=== PATIENT | male | born 1950 | race Hispanic/Latino ===

== ENCOUNTER 2021-01-23 03:10 | Emergency (ER) | payer OTHER, MEDICARE ==
[~2021-01-23] VITALS: Ht 152.4 cm; Wt 67.6 kg
[~2021-01-23 03:10] MED LIST: ALBU8.5H8 IH; ATOR20TA65 PO; CARV6.2579 PO; CICL6.6S19 TP; FURO40TA7 PO; INSU3INS3 SQ; LEVO25CA4 PO; VITAMIN D PO
[2021-01-23 04:08] VITALS: BP 99/71
[2021-01-23 04:53] LABS: ALBUMIN 3.3 g/dL (3.5-5.0); BILIRUBIN,TOTAL 2.9 mg/dL (0.2-1.0); CREATININE 1.8 mg/dL (0.5-1.5); POTASSIUM 5.2 mmol/L (3.5-5.1)
[2021-01-23 04:57] LABS: BASOPHILS % (AUTO) 0.4 % (0.0-5.0); EOSINOPHILS % (AUTO) 0.5 % (0.0-8.0); HEMATOCRIT 32.2 % (42-54); LYMPHOCYTES % (AUTO) 14.8 % (21.0-51.0); MEAN CORPUSCULAR HEMOGLOBIN 28.5 pg (27.0-33.0); MONOCYTES % (AUTO) 6.5 % (3.0-13.0); NEUTROPHILS % (AUTO) 77.4 % (40.0-77.0); PLATELET COUNT (AUTO) 208 K/uL (130-400); RED BLOOD CELL COUNT(AUTO) 3.62 MIL/uL (4.50-6.20); RED CELL DISTRIBUTION WIDTH 16.7 % (11.0-15.5); WHITE BLOOD COUNT (AUTO) 5.6 K/uL (4.8-10.8)
[2021-01-23] MEDS ORDERED: FUROSEMIDE 40MG VIAL IV ONE (05:00)
[2021-01-23 05:41] LABS: B-TYPE NATRIURETIC PEPTIDE 2130 pg/mL (0-100)
[2021-01-23 06:21] VITALS: BP 104/74
[2021-01-23 08:05] VITALS: BP 100/72
== END 2021-01-23 08:42 | disposition home or self-care (01) ==
LOC: EDH 03:10
DX: R60.0 Localized edema (principal); I11.0 Hypertensive heart disease with heart failure; I50.9 Heart failure, unspecified; I25.10 Atherosclerotic heart disease of native coronary artery without angina pectoris; E10.9 Type 1 diabetes mellitus without complications; E78.5 Hyperlipidemia, unspecified; Z79.4 Long term (current) use of insulin; Z79.899 Other long term (current) drug therapy; Z95.0 Presence of cardiac pacemaker
CPT/HCPCS: 36415; 80053; 83880; 84484; 85025; 96374; 99283; J1940

== ENCOUNTER 2021-01-23 17:42 | Emergency (ER) | payer OTHER, MEDICARE ==
[~2021-01-23] VITALS: Ht 152.4 cm; Wt 65.8 kg
[2021-01-23 18:14] LABS: BASOPHILS % (AUTO) 0.3 % (0.0-5.0); EOSINOPHILS % (AUTO) 0.6 % (0.0-8.0); HEMATOCRIT 33.1 % (42-54); LYMPHOCYTES % (AUTO) 11.7 % (21.0-51.0); MEAN CORPUSCULAR HEMOGLOBIN 28.9 pg (27.0-33.0); MEAN CORPUSCULAR VOLUME 90.2 fL (79-99); MONOCYTES % (AUTO) 7.6 % (3.0-13.0); PLATELET COUNT (AUTO) 219 K/uL (130-400); RED BLOOD CELL COUNT(AUTO) 3.67 MIL/uL (4.50-6.20); RED CELL DISTRIBUTION WIDTH 17.2 % (11.0-15.5); WHITE BLOOD COUNT (AUTO) 6.2 K/uL (4.8-10.8)
[2021-01-23 18:25] LABS: CARBON DIOXIDE 24 mmol/L (21-32); CHLORIDE 101 mmol/L (101-111); CREATININE 2.1 mg/dL (0.5-1.5); GLOMERULAR FILTR. RATE CALC 33 mL/min (>60); GLUCOSE,RANDOM 278 mg/dL (70-105); SODIUM SERUM 138 mmol/L (136-145); UREA NITROGEN, BLOOD 53 mg/dL (7-18)
[2021-01-23 18:33] VITALS: BP 106/78
[2021-01-23 18:33] LABS: B-TYPE NATRIURETIC PEPTIDE 2180 pg/mL (0-100)
[2021-01-23 18:44] LABS: ALANINE AMINOTRANSFERASE 172 U/L (12-78); ALBUMIN 3.5 g/dL (3.5-5.0); ASPARTATE AMINOTRANSFERASE 139 U/L (10-37); BILIRUBIN,TOTAL 3.3 mg/dL (0.2-1.0); CREATINE KINASE, TOTAL 117 U/L (21-232); MYOGLOBIN 155 ng/mL (10-92); TOTAL PROTEIN, SERUM 7.3 g/dL (6.0-8.3); TROPONIN I < 0.04 ng/mL (0.00-0.06)
[2021-01-23 19:54] VITALS: BP 102/71
[2021-01-23 22:48] VITALS: BP 105/80
[2021-01-23 23:34] VITALS: BP 108/81
[2021-01-24 00:05] VITALS: BP 105/70
[2021-01-24 00:31] LABS: APPEARANCE,URINE Clear (CLEAR); BILIRUBIN,URINE Negative (NEGATIVE); COLOR,URINE Dark Yellow (YELLOW); GLUCOSE, URINE (UA) Negative (NEGATIVE); KETONES,URINE Negative (NEGATIVE); LEUKOCYTE ESTERASE ,URINE Negative (NEGATIVE); NITRATE,URINE Negative (NEGATIVE); OCCULT BLOOD,URINE Negative (NEGATIVE); PROTEIN,URINE Negative (NEGATIVE)
== END 2021-01-24 00:49 | disposition home or self-care (01) ==
LOC: EDH 17:42
DX: R60.0 Localized edema (principal); I11.0 Hypertensive heart disease with heart failure; I50.9 Heart failure, unspecified; R91.8 Other nonspecific abnormal finding of lung field; E11.9 Type 2 diabetes mellitus without complications; Z79.899 Other long term (current) drug therapy
CPT/HCPCS: 36415; 71045; 71250; 80053; 81003; 82550; 83874; 83880; 84484; 85025; 93005; 93970

== ENCOUNTER 2021-01-26 12:28 | Inpatient (IN) | payer OTHER, MEDICARE ==
[2021-01-26] VITALS (13 sets, daily range): BP systolic 93–136; BP diastolic 51–88
[~2021-01-26] VITALS: Ht 160 cm; Wt 83.5 kg
[2021-01-26] MEDS: CEFEPIME HCL 1 GM VIAL IVP SCH (02:00)
[2021-01-26] MEDS: 0.9%NACL 1000ML 1,000 ML IV SCH (08:00)
[2021-01-26] MEDS ORDERED: DEXTROSE 50%-WATER 50 ML DISP.SYRIN IV ONE ×4 (12:37→16:58)
[2021-01-26] MEDS ORDERED: LEVETIRACETAM 500 MG/5 ML SD VIAL IV ONE (12:41)
[2021-01-26] MEDS ORDERED: 0.9%NACL 100ML 100 ML ONE (12:41)
[2021-01-26] MEDS ORDERED: LORAZEPAM 2 MG/ML 1 ML VIAL ONE (12:43)
[2021-01-26] MEDS ORDERED: DEXTROSE 10%-WATER 1,000 ML IV ONE (12:59)
[2021-01-26] MEDS ORDERED: PROPOFOL 1000 MG/100 ML 100 ML IV ONE (13:19)
[2021-01-26] MEDS: LEVETIRACETAM 1,000 MG in 0.9%NACL 100ML 100 ML IV SCH ×2 (13:37→22:00)
[2021-01-26 13:49] LABS: BASOPHILS % (AUTO) 0.1 % (0.0-5.0); EOSINOPHILS % (AUTO) 0.1 % (0.0-8.0); LYMPHOCYTES % (AUTO) 8.7 % (21.0-51.0); MEAN CORPUSCULAR HEMOGLOBIN 29.1 pg (27.0-33.0); MEAN CORPUSCULAR HGB CONC 31.4 g/dL (32.0-36.0); MEAN CORPUSCULAR VOLUME 92.7 fL (79-99); MONOCYTES % (AUTO) 7.3 % (3.0-13.0); NEUTROPHILS % (AUTO) 82.8 % (40.0-77.0); PLATELET COUNT (AUTO) 223 K/uL (130-400); RED BLOOD CELL COUNT(AUTO) 3.99 MIL/uL (4.50-6.20); RED CELL DISTRIBUTION WIDTH 17.8 % (11.0-15.5); WHITE BLOOD COUNT (AUTO) 8.7 K/uL (4.8-10.8)
[2021-01-26] MEDS ORDERED: LEVETIRACETAM 1,500 MG in 0.9%NACL 100ML 100 ML IV SCH (14:00)
[2021-01-26 14:05] LABS: ALBUMIN 3.1 g/dL (3.5-5.0); BILIRUBIN,TOTAL 2.6 mg/dL (0.2-1.0); CREATININE 1.4 mg/dL (0.5-1.5)
[2021-01-26 14:11] LABS: B-TYPE NATRIURETIC PEPTIDE 2310 pg/mL (0-100)
[2021-01-26 14:24] LABS: INR 1.37 (0.85-1.15); PROTHROMBIN TIME 14.5 SEC (9.6-11.6)
[2021-01-26 14:26] LABS: PARTIAL THROMBOPLASTIN TIME 27.2 SEC (26.3-35.5)
[2021-01-26 14:58] LABS: ABG BASE EXCESS -5.9 mmol/L (-2.0-3.0); ABG HCO3 21.1 mmol/L (21.0-28.0); ABG OXYGEN SATURATION 97.3 % (95.0-99.0); ABG PCO2 47 mmHg (35-48)
[2021-01-26] MEDS ORDERED: ETOMIDATE 20MG VIAL IVP ONE (15:28)
[2021-01-26] MEDS ORDERED: SUCCINYLCHOLINE CHLORIDE 20 MG/ML 10 ML VIAL IVP ONE (15:28)
[2021-01-26] MEDS ORDERED: ROCURONIUM BROMIDE 10MG/1ML 5ML VL IV ONE (15:28)
[2021-01-26] MEDS ORDERED: SOLU-MEDROL 125MG VIAL IVP ONE (15:30)
[2021-01-26] MEDS ORDERED: FOSPHENYTOIN SODIUM IJ ONE ×2 (16:00→16:30)
[2021-01-26] MEDS ORDERED: NACL 0.9% IJ ONE (16:00)
[2021-01-26] MEDS ORDERED: [UNRECOGNIZED DRUG - OTHER] IJ ONE (16:30)
[2021-01-26] MEDS ORDERED: SOLU-MEDROL 125MG VIAL ONE (16:59)
[2021-01-26] MEDS ORDERED: ONDANSETRON 4MG INJ IVP PRN (17:00)
[2021-01-26] MEDS ORDERED: SOLU-MEDROL 125MG VIAL IVP SCH (17:00)
[2021-01-26] MEDS ORDERED: ACETAMINOPHEN 650 MG SUPPOSITORY RC PRN (17:00)
[2021-01-26] MEDS ORDERED: GLUCAGON 1MG KIT 1 MG ML IM PRN (17:00)
[2021-01-26] MEDS ORDERED: ACETAMINOPHEN 325 MG TAB PO PRN (17:00)
[2021-01-26] MEDS ORDERED: DEXTROSE 50%-WATER 50 ML DISP.SYRIN IV PRN (17:00)
[2021-01-26] MEDS: VALPROIC ACID (AS SODIUM SALT) 250 MG in 0.9%NACL 100ML 100 ML IV SCH (18:00)
[2021-01-26] MEDS: NOREPINEPHRINE 4MG/NS 250ML 250 ML IV PRN (18:07)
[2021-01-26 19:22] LABS: CREATINE KINASE, TOTAL 74 U/L (21-232); MYOGLOBIN 138 ng/mL (10-92); TROPONIN I < 0.04 ng/mL (0.00-0.06)
[2021-01-26] MEDS ORDERED: LACTULOSE 20 GM/30 ML UDCUP PO PRN (22:00)
[2021-01-26] MEDS: METRONIDAZOLE 500MG/100ML BAG 100 ML IVPB SCH (22:00)
[2021-01-26 23:34] LABS: CREATINE KINASE, TOTAL 59 U/L (21-232); MYOGLOBIN 83 ng/mL (10-92); TROPONIN I < 0.04 ng/mL (0.00-0.06)
[2021-01-27] VITALS (28 sets, daily range): BP systolic 102–127; BP diastolic 42–73
[2021-01-27] MEDS ORDERED: DEXTROSE 10%-WATER 1,000 ML IV ONE (00:02)
[2021-01-27] MEDS: VALPROIC ACID (AS SODIUM SALT) 250 MG in 0.9%NACL 100ML 100 ML IV SCH ×3 (00:56→17:35)
[2021-01-27] MEDS: CEFEPIME HCL 1 GM VIAL IVP SCH ×3 (01:01→20:41)
[2021-01-27] MEDS: FOSPHENYTOIN SODIUM 100 MG/2 ML VIAL IV SCH ×3 (02:50→21:06)
[2021-01-27] MEDS: METRONIDAZOLE 500MG/100ML BAG 100 ML IVPB SCH ×3 (04:57→21:14)
[2021-01-27] MEDS: LEVETIRACETAM 1,000 MG in 0.9%NACL 100ML 100 ML IV SCH ×3 (04:57→20:39)
[2021-01-27] MEDS: 0.9%NACL 1000ML 1,000 ML IV SCH ×3 (07:00→23:00)
[2021-01-27 07:39] LABS: BASOPHILS % (AUTO) 0.2 % (0.0-5.0); EOSINOPHILS % (AUTO) 0.2 % (0.0-8.0); HEMATOCRIT 35.7 % (42-54); LYMPHOCYTES % (AUTO) 5.3 % (21.0-51.0); MEAN CORPUSCULAR HGB CONC 32.2 g/dL (32.0-36.0); MEAN CORPUSCULAR VOLUME 90.2 fL (79-99); MONOCYTES % (AUTO) 3.6 % (3.0-13.0); NEUTROPHILS % (AUTO) 89.8 % (40.0-77.0); PLATELET COUNT (AUTO) 258 K/uL (130-400); RED BLOOD CELL COUNT(AUTO) 3.96 MIL/uL (4.50-6.20); RED CELL DISTRIBUTION WIDTH 18.1 % (11.0-15.5); WHITE BLOOD COUNT (AUTO) 14.8 K/uL (4.8-10.8)
[2021-01-27] MEDS ORDERED: PROPOFOL 1000 MG/100 ML 100 ML IV ONE ×4 (07:51→21:33)
[2021-01-27 08:01] LABS: ALBUMIN 2.7 g/dL (3.5-5.0); BILIRUBIN,TOTAL 2.8 mg/dL (0.2-1.0); CREATININE 1.3 mg/dL (0.5-1.5); MAGNESIUM 2.3 mg/dL (1.80-2.40); PHOSPHORUS 4.3 mg/dL (2.5-4.9); POTASSIUM 4.3 mmol/L (3.5-5.1); THYROID STIMULATING HORMONE 1.14 uIU/mL (0.36-3.74)
[2021-01-27 08:06] LABS: INR 1.32 (0.85-1.15)
[2021-01-27] MEDS: PANTOPRAZOLE 40 MG/VIAL IVP SCH (08:07)
[2021-01-27] MEDS: ENOXAPARIN SODIUM 40 MG/0.4 ML SYRINGE SQ SCH (08:08)
[2021-01-27 08:11] LABS: HEMOGLOBIN A1C 10.3 % (4.0-6.0)
[2021-01-27 08:15] LABS: B-TYPE NATRIURETIC PEPTIDE 1600 pg/mL (0-100)
[2021-01-27 08:37] LABS: ABG BASE EXCESS -0.9 mmol/L (-2.0-3.0); ABG HCO3 22.7 mmol/L (21.0-28.0); ABG OXYGEN SATURATION 99.2 % (95.0-99.0); ABG PCO2 35 mmHg (35-48)
[2021-01-27] MEDS ORDERED: IOHEXOL-350 75 ML VIAL IV ONE (10:42)
[2021-01-27] MEDS: MILRINONE-D5W 20 MG/100 ML 100 ML IV SCH (20:39)
[2021-01-27] MEDS: CEFTRIAXONE 2GM VIAL IVP SCH (21:57)
[2021-01-27] MEDS: INSULIN HUMULIN R 100 UNIT/ML 3ML SQ SCH (21:59)
[2021-01-27] MEDS: NOREPINEPHRINE 4MG/NS 250ML 250 ML IV PRN (23:15)
[2021-01-28] VITALS (25 sets, daily range): BP systolic 94–160; BP diastolic 49–104
[2021-01-28] MEDS: VALPROIC ACID (AS SODIUM SALT) 250 MG in 0.9%NACL 100ML 100 ML IV SCH ×2 (01:15→08:32)
[2021-01-28] MEDS: PROPOFOL 1000 MG/100 ML IV PRN ×3 (01:16→18:33)
[2021-01-28] MEDS: FOSPHENYTOIN SODIUM 100 MG/2 ML VIAL IV SCH ×4 (02:05→23:21)
[2021-01-28] MEDS: NOREPINEPHRINE 4MG/NS 250ML 250 ML IV PRN ×3 (03:20→23:39)
[2021-01-28] MEDS: 0.9%NACL 1000ML 1,000 ML IV SCH ×2 (03:41→19:55)
[2021-01-28] MEDS: LEVETIRACETAM 1,000 MG in 0.9%NACL 100ML 100 ML IV SCH ×3 (05:10→21:14)
[2021-01-28] MEDS: METRONIDAZOLE 500MG/100ML BAG 100 ML IVPB SCH ×3 (05:39→21:14)
[2021-01-28 06:15] LABS: HEMATOCRIT 36.3 % (42-54); MEAN CORPUSCULAR HEMOGLOBIN 28.6 pg (27.0-33.0); MEAN CORPUSCULAR HGB CONC 30.9 g/dL (32.0-36.0); MEAN CORPUSCULAR VOLUME 92.6 fL (79-99); RED BLOOD CELL COUNT(AUTO) 3.92 MIL/uL (4.50-6.20); RED CELL DISTRIBUTION WIDTH 18.7 % (11.0-15.5); WHITE BLOOD COUNT (AUTO) 11.8 K/uL (4.8-10.8)
[2021-01-28] MEDS: INSULIN HUMULIN R 100 UNIT/ML 3ML SQ SCH ×6 (06:21→21:00)
[2021-01-28] MEDS: MILRINONE-D5W 20 MG/100 ML 100 ML IV SCH ×2 (06:26→18:30)
[2021-01-28 06:33] LABS: CREATININE 1.5 mg/dL (0.5-1.5); MAGNESIUM 2.4 mg/dL (1.80-2.40); PHENYTOIN (DILANTIN) 4.4 mcg/mL (10.0-20.0); PHOSPHORUS 3.3 mg/dL (2.5-4.9); POTASSIUM 4.4 mmol/L (3.5-5.1)
[2021-01-28] MEDS ORDERED: FOSPHENYTOIN SODIUM 100 MG/2 ML VIAL IV SCH (08:30)
[2021-01-28] MEDS ORDERED: VALPROATE SOD 250 MG/5 ML (PO) PO SCH (08:30)
[2021-01-28] MEDS: PANTOPRAZOLE 40 MG/VIAL IVP SCH (08:33)
[2021-01-28] MEDS: ENOXAPARIN SODIUM 40 MG/0.4 ML SYRINGE SQ SCH (08:41)
[2021-01-28] MEDS ORDERED: FOSPHENYTOIN SODIUM IV SCH (09:00)
[2021-01-28] MEDS ORDERED: [UNRECOGNIZED DRUG - OTHER] IV SCH (09:00)
[2021-01-28] MEDS ORDERED: LACTULOSE 20 GM/30 ML UDCUP PO PRN (10:00)
[2021-01-28] MEDS ORDERED: PHARMACY COMMUNICATION MISC SCH ×3 (10:30→14:30)
[2021-01-28] MEDS ORDERED: [UNRECOGNIZED DRUG - REMARK] MISC STA (14:28)
[2021-01-28] MEDS: VALPROIC ACID IV SCH ×2 (18:15→23:21)
[2021-01-28] MEDS: [UNRECOGNIZED DRUG - OTHER] IV SCH ×2 (18:15→23:21)
[2021-01-28] MEDS: NACL 0.9% IV SCH (18:31)
[2021-01-28] MEDS: ACYCLOVIR IV SCH (18:31)
[2021-01-28 18:49] LABS: APPEARANCE,URINE Clear (CLEAR); BILIRUBIN,URINE Negative (NEGATIVE); COLOR,URINE Yellow (YELLOW); GLUCOSE, URINE (UA) Negative (NEGATIVE); KETONES,URINE Negative (NEGATIVE); LEUKOCYTE ESTERASE ,URINE Small (NEGATIVE); NITRATE,URINE Negative (NEGATIVE); OCCULT BLOOD,URINE Large (NEGATIVE); PH,URINE 5.5 (5.0-8.0); PROTEIN,URINE Negative (NEGATIVE); UROBILINOGEN,URINE 0.2 mg/dL (0.2-1.0)
[2021-01-28 19:02] LABS: RBC,URINE 26-50 /HPF (0-1)
[2021-01-28 19:03] LABS: BACTERIA,URINE Few /HPF (None Seen); MUCUS,URINE Few LPF (None Seen); SQUAMOUS EPITHELIAL CELL,UR Few /HPF (0-2)
[2021-01-28] MEDS: CEFTRIAXONE 2GM VIAL IVP SCH (19:55)
[2021-01-28 22:11] LABS: AMPHET/METH SCREEN,URINE NEGATIVE (NEGATIVE); BARBITURATE SCREEN, URINE NEGATIVE (NEGATIVE); BENZODIAZEPINES SCREEN,URINE NEGATIVE (NEGATIVE); CANNABINOID SCREEN,URINE NEGATIVE (NEGATIVE); COCAINE SCREEN,URINE NEGATIVE (NEGATIVE); OPIATE SCREEN,URINE NEGATIVE (NEGATIVE); PHENCYCLIDINE SCREEN,URINE NEGATIVE (NEGATIVE)
[2021-01-29] VITALS (51 sets, daily range): BP systolic 90–129; BP diastolic 50–76
[2021-01-29] MEDS: PROPOFOL 1000 MG/100 ML IV PRN ×2 (00:36→04:41)
[2021-01-29] MEDS: NACL 0.9% IV SCH ×3 (00:38→17:24)
[2021-01-29] MEDS: ACYCLOVIR IV SCH ×3 (00:38→17:24)
[2021-01-29 03:32] LABS: HEMATOCRIT 33.8 % (42-54); MEAN CORPUSCULAR HEMOGLOBIN 29.2 pg (27.0-33.0); MEAN CORPUSCULAR HGB CONC 31.4 g/dL (32.0-36.0); MEAN CORPUSCULAR VOLUME 93.1 fL (79-99); RED BLOOD CELL COUNT(AUTO) 3.63 MIL/uL (4.50-6.20); RED CELL DISTRIBUTION WIDTH 18.9 % (11.0-15.5); WHITE BLOOD COUNT (AUTO) 7.8 K/uL (4.8-10.8)
[2021-01-29 03:40] LABS: CREATININE 1.4 mg/dL (0.5-1.5); POTASSIUM 3.9 mmol/L (3.5-5.1)
[2021-01-29 03:44] LABS: INR 1.17 (0.85-1.15); PROTHROMBIN TIME 12.6 SEC (9.6-11.6)
[2021-01-29] MEDS: MILRINONE-D5W 20 MG/100 ML 100 ML IV SCH (04:40)
[2021-01-29] MEDS: 0.9%NACL 1000ML 1,000 ML IV SCH ×2 (04:41→16:31)
[2021-01-29] MEDS: LEVETIRACETAM 1,000 MG in 0.9%NACL 100ML 100 ML IV SCH ×3 (04:45→21:03)
[2021-01-29] MEDS: METRONIDAZOLE 500MG/100ML BAG 100 ML IVPB SCH ×3 (04:46→21:03)
[2021-01-29] MEDS: INSULIN HUMULIN R 100 UNIT/ML 3ML SQ SCH ×4 (05:45→20:34)
[2021-01-29] MEDS ORDERED: FOSPHENYTOIN SODIUM IV SCH (08:00)
[2021-01-29] MEDS ORDERED: [UNRECOGNIZED DRUG - OTHER] IV SCH (08:00)
[2021-01-29] MEDS: PANTOPRAZOLE 40 MG/VIAL IVP SCH (08:41)
[2021-01-29] MEDS: [UNRECOGNIZED DRUG - OTHER] IV SCH ×2 (08:42→16:29)
[2021-01-29] MEDS: VALPROIC ACID IV SCH ×2 (08:42→16:29)
[2021-01-29] MEDS: NOREPINEPHRINE 4MG/NS 250ML 250 ML IV PRN (08:44)
[2021-01-29] MEDS: MIDAZOLAM HCL 100 MG in 0.9%NACL 50ML 100 ML IV SCH (09:18)
[2021-01-29] MEDS ORDERED: COMPOUND NARC IV MISC 1 EACH IVSOLN MISC PRN (14:00)
[2021-01-29] MEDS ORDERED: AMPICILLIN 2GM+NS 100ML IV SCH (14:00)
[2021-01-29] MEDS ORDERED: VANCOMYCIN PROTOCOL PER PHARMACY IV SCH (14:00)
[2021-01-29] MEDS ORDERED: VANCOMYCIN 1G VIAL IVPB ONE (14:00)
[2021-01-29] MEDS: CHLORHEXIDINE GLUCONATE 473 ML MOUTHWASH MM SCH ×2 (14:00→20:15)
[2021-01-29] MEDS: [UNRECOGNIZED DRUG - OTHER] IV SCH ×2 (14:35→20:11)
[2021-01-29] MEDS: FOSPHENYTOIN SODIUM IV SCH ×2 (14:35→20:11)
[2021-01-29 14:39] LABS: APPEARANCE,CSF CLEAR (CLEAR); COLOR,CSF COLORLESS (COLORLESS); CSF TOTAL VOLUME 14.5 mL; CSF TUBE NUMBER 1
[2021-01-29 14:40] LABS: WHITE BLOOD CELL1,CSF 0 CMM (0-5)
[2021-01-29 14:41] LABS: APPEARANCE,CSF CLEAR (CLEAR); COLOR,CSF COLORLESS (COLORLESS); CSF TOTAL VOLUME 14.5 mL; CSF TUBE NUMBER 2; RED BLOOD CELL1,CSF 122 CMM (0-0)
[2021-01-29 14:42] LABS: WHITE BLOOD CELL1,CSF 0 CMM (0-5)
[2021-01-29 14:43] LABS: RED BLOOD CELL1,CSF 27 CMM (0-0)
[2021-01-29 14:49] LABS: GLUCOSE, CSF 78 mg/dL (40-70); TOTAL PROTEIN, CSF 49 mg/dL (15-45)
[2021-01-29 14:50] LABS: GLUCOSE, CSF 78 mg/dL (40-70); TOTAL PROTEIN, CSF 45 mg/dL (15-45)
[2021-01-29] MEDS: VANCOMYCIN 1.25GM/NS 250ML IVPB SCH ×2 (16:21)
[2021-01-29] MEDS: CEFTRIAXONE 2GM VIAL IVP SCH (20:15)
[2021-01-29] MEDS: ARTIFICIAL TEARS 3.5 GM OINTMENT OU SCH (20:16)
[2021-01-29] MEDS: LACOSAMIDE 200 MG/20 ML VIAL IV SCH (21:04)
[2021-01-30] VITALS (64 sets, daily range): BP systolic 89–120; BP diastolic 47–71
[2021-01-30] MEDS: [UNRECOGNIZED DRUG - OTHER] IV SCH ×4 (00:22→22:35)
[2021-01-30] MEDS: VALPROIC ACID IV SCH ×4 (00:22→22:35)
[2021-01-30] MEDS: NOREPINEPHRINE 4MG/NS 250ML 250 ML IV PRN ×2 (00:23→12:33)
[2021-01-30] MEDS: 0.9%NACL 1000ML 1,000 ML IV SCH (00:47)
[2021-01-30] MEDS: NACL 0.9% IV SCH ×3 (00:47→16:40)
[2021-01-30] MEDS: ACYCLOVIR IV SCH ×3 (00:47→16:40)
[2021-01-30] MEDS: MILRINONE-D5W 20 MG/100 ML 100 ML IV SCH ×2 (01:16→10:51)
[2021-01-30] MEDS: CHLORHEXIDINE GLUCONATE 473 ML MOUTHWASH MM SCH ×4 (02:32→21:39)
[2021-01-30 03:25] LABS: ABG BASE EXCESS 1.2 mmol/L (-2.0-3.0); ABG HCO3 24.2 mmol/L (21.0-28.0); ABG OXYGEN SATURATION 95.6 % (95.0-99.0); ABG PCO2 34 mmHg (35-48)
[2021-01-30 04:18] LABS: HEMATOCRIT 34.2 % (42-54); MEAN CORPUSCULAR HEMOGLOBIN 28.9 pg (27.0-33.0); MEAN CORPUSCULAR VOLUME 93.2 fL (79-99); RED BLOOD CELL COUNT(AUTO) 3.67 MIL/uL (4.50-6.20); RED CELL DISTRIBUTION WIDTH 18.4 % (11.0-15.5); WHITE BLOOD COUNT (AUTO) 6.5 K/uL (4.8-10.8)
[2021-01-30 04:36] LABS: POTASSIUM 3.5 mmol/L (3.5-5.1)
[2021-01-30] MEDS: METRONIDAZOLE 500MG/100ML BAG 100 ML IVPB SCH ×3 (05:07→21:38)
[2021-01-30] MEDS: FOSPHENYTOIN SODIUM IV SCH ×3 (05:07→21:38)
[2021-01-30] MEDS: LEVETIRACETAM 1,000 MG in 0.9%NACL 100ML 100 ML IV SCH ×3 (05:07→21:37)
[2021-01-30] MEDS: [UNRECOGNIZED DRUG - OTHER] IV SCH ×3 (05:07→21:38)
[2021-01-30] MEDS: INSULIN HUMULIN R 100 UNIT/ML 3ML SQ SCH ×4 (06:46→21:00)
[2021-01-30] MEDS: CEFTRIAXONE 2GM VIAL IVP SCH ×2 (08:09→21:38)
[2021-01-30] MEDS: PANTOPRAZOLE 40 MG/VIAL IVP SCH (08:09)
[2021-01-30] MEDS: PROPOFOL 1000 MG/100 ML IV PRN ×2 (08:37→22:05)
[2021-01-30] MEDS: LACOSAMIDE 200 MG/20 ML VIAL IV SCH (09:06)
[2021-01-30] MEDS: ENOXAPARIN SODIUM 40 MG/0.4 ML SYRINGE SQ SCH (09:23)
[2021-01-30] MEDS: FUROSEMIDE 20MG VIAL IV SCH ×2 (11:38→18:17)
[2021-01-30] MEDS: ALBUMIN (HUMAN) 25% 50 ML IV SCH ×2 (11:43→18:19)
[2021-01-30] MEDS ORDERED: COMPOUND IV REFRIGERATED 1 EACH IVSOLN MISC PRN (12:30)
[2021-01-30] MEDS: VANCOMYCIN 1.25GM/NS 250ML IVPB SCH ×2 (14:04)
[2021-01-30] MEDS ORDERED: LACOSAMIDE 200 MG/20 ML VIAL IV SCH ×2 (21:00)
[2021-01-30] MEDS: ARTIFICIAL TEARS 3.5 GM OINTMENT OU SCH (21:39)
[2021-01-30] MEDS: MIDAZOLAM HCL 100 MG in 0.9%NACL 50ML 100 ML IV SCH (22:05)
[2021-01-31] VITALS (45 sets, daily range): BP systolic 88–115; BP diastolic 56–68
[2021-01-31] MEDS: NOREPINEPHRINE 4MG/NS 250ML 250 ML IV PRN ×2 (00:18→16:34)
[2021-01-31] MEDS ORDERED: AMIODARONE 900MG VIAL 150 MG in DEXTROSE 5%-WATER 100 ML IV SCH (00:30)
[2021-01-31] MEDS ORDERED: AMIODARONE 900MG VIAL 900 MG in DEXTROSE 5%-WATER 500 ML IV SCH (00:30)
[2021-01-31] MEDS: NACL 0.9% IV SCH ×3 (00:59→18:07)
[2021-01-31] MEDS: ACYCLOVIR IV SCH ×3 (00:59→18:07)
[2021-01-31] MEDS: CHLORHEXIDINE GLUCONATE 473 ML MOUTHWASH MM SCH ×4 (01:15→20:53)
[2021-01-31] MEDS: FUROSEMIDE 20MG VIAL IV SCH ×3 (02:53→18:12)
[2021-01-31 04:09] LABS: ABG BASE EXCESS 4.8 mmol/L (-2.0-3.0); ABG HCO3 26.9 mmol/L (21.0-28.0); ABG OXYGEN SATURATION 95.4 % (95.0-99.0); ABG PCO2 32 mmHg (35-48)
[2021-01-31 04:30] LABS: MEAN CORPUSCULAR HGB CONC 31.6 g/dL (32.0-36.0); MEAN CORPUSCULAR VOLUME 91.6 fL (79-99); RED BLOOD CELL COUNT(AUTO) 4.04 MIL/uL (4.50-6.20); RED CELL DISTRIBUTION WIDTH 18.5 % (11.0-15.5); WHITE BLOOD COUNT (AUTO) 7.8 K/uL (4.8-10.8)
[2021-01-31 04:45] LABS: CREATININE 1.1 mg/dL (0.5-1.5); PHENYTOIN (DILANTIN) 5.5 mcg/mL (10.0-20.0); POTASSIUM 3.6 mmol/L (3.5-5.1)
[2021-01-31] MEDS: METRONIDAZOLE 500MG/100ML BAG 100 ML IVPB SCH ×3 (05:45→22:28)
[2021-01-31] MEDS: INSULIN HUMULIN R 100 UNIT/ML 3ML SQ SCH ×4 (05:55→21:00)
[2021-01-31] MEDS: [UNRECOGNIZED DRUG - OTHER] IV SCH ×2 (05:55→13:02)
[2021-01-31] MEDS: FOSPHENYTOIN SODIUM IV SCH ×4 (05:55→21:09)
[2021-01-31] MEDS: LEVETIRACETAM 1,000 MG in 0.9%NACL 100ML 100 ML IV SCH ×3 (05:55→21:12)
[2021-01-31] MEDS: [UNRECOGNIZED DRUG - OTHER] IV SCH ×2 (06:30→14:33)
[2021-01-31] MEDS: VALPROIC ACID IV SCH ×4 (06:30→22:28)
[2021-01-31] MEDS: ALBUMIN (HUMAN) 25% 50 ML IV SCH (07:01)
[2021-01-31 08:22] LABS: ABG BASE EXCESS 4.2 mmol/L (-2.0-3.0); ABG HCO3 26.9 mmol/L (21.0-28.0); ABG OXYGEN SATURATION 91.9 % (95.0-99.0); ABG PCO2 34 mmHg (35-48)
[2021-01-31] MEDS: CEFTRIAXONE 2GM VIAL IVP SCH ×2 (09:06→20:52)
[2021-01-31] MEDS: PANTOPRAZOLE 40 MG/VIAL IVP SCH (09:06)
[2021-01-31] MEDS: ENOXAPARIN SODIUM 40 MG/0.4 ML SYRINGE SQ SCH (09:13)
[2021-01-31] MEDS: LACOSAMIDE 200 MG/20 ML VIAL IV SCH ×2 (10:01→20:52)
[2021-01-31 10:14] LABS: ABG BASE EXCESS 2.7 mmol/L (-2.0-3.0); ABG HCO3 25.7 mmol/L (21.0-28.0); ABG OXYGEN SATURATION 96.8 % (95.0-99.0); ABG PCO2 35 mmHg (35-48)
[2021-01-31] MEDS ORDERED: PHARMACY COMMUNICATION MISC SCH (10:30)
[2021-01-31] MEDS: PROPOFOL 1000 MG/100 ML IV PRN (12:30)
[2021-01-31] MEDS: PHARMACY COMMUNICATION MISC SCH ×8 (13:30→21:10)
[2021-01-31] MEDS: [UNRECOGNIZED DRUG - OTHER] IV SCH ×2 (15:27→22:28)
[2021-01-31] MEDS ORDERED: VANCOMYCIN 1.25GM/NS 250ML IVPB SCH ×2 (16:30)
[2021-01-31] MEDS ORDERED: COMPOUND IV MISC 1 EACH IVSOLN MISC PRN (18:00)
[2021-01-31] MEDS: [UNRECOGNIZED DRUG - OTHER] IV SCH ×2 (20:48→21:09)
[2021-01-31] MEDS: MIDODRINE HCL 5 MG TABLET PO SCH (20:52)
[2021-01-31] MEDS: ARTIFICIAL TEARS 3.5 GM OINTMENT OU SCH (20:53)
[2021-02-01] VITALS (48 sets, daily range): BP systolic 87–125; BP diastolic 51–75
[2021-02-01] MEDS: PROPOFOL 1000 MG/100 ML IV PRN ×2 (00:34→10:15)
[2021-02-01] MEDS: NACL 0.9% IV SCH ×3 (00:37→16:31)
[2021-02-01] MEDS: ACYCLOVIR IV SCH ×3 (00:37→16:31)
[2021-02-01] MEDS: PHARMACY COMMUNICATION MISC SCH ×18 (01:30→22:14)
[2021-02-01] MEDS: CHLORHEXIDINE GLUCONATE 473 ML MOUTHWASH MM SCH ×4 (02:11→20:17)
[2021-02-01 04:31] LABS: HEMATOCRIT 37.4 % (42-54); MEAN CORPUSCULAR HEMOGLOBIN 28.8 pg (27.0-33.0); MEAN CORPUSCULAR HGB CONC 30.7 g/dL (32.0-36.0); MEAN CORPUSCULAR VOLUME 93.7 fL (79-99); RED BLOOD CELL COUNT(AUTO) 3.99 MIL/uL (4.50-6.20); RED CELL DISTRIBUTION WIDTH 18.2 % (11.0-15.5); WHITE BLOOD COUNT (AUTO) 8.2 K/uL (4.8-10.8)
[2021-02-01 04:39] LABS: POTASSIUM 3.5 mmol/L (3.5-5.1)
[2021-02-01] MEDS: FUROSEMIDE 20MG VIAL IV SCH ×3 (04:41→18:04)
[2021-02-01] MEDS: LEVETIRACETAM 1,000 MG in 0.9%NACL 100ML 100 ML IV SCH ×3 (05:03→21:35)
[2021-02-01] MEDS: FOSPHENYTOIN SODIUM 100 MG in 0.9%NACL 50ML 50 ML IV SCH ×3 (05:04→20:16)
[2021-02-01] MEDS: VANCOMYCIN 500MG+NS 100ML IVPB IV SCH ×2 (06:16→17:39)
[2021-02-01] MEDS: METRONIDAZOLE 500MG/100ML BAG 100 ML IVPB SCH ×3 (06:16→22:07)
[2021-02-01] MEDS: 0.9%NACL 100ML 100 ML IV SCH ×2 (06:16→17:39)
[2021-02-01] MEDS: INSULIN HUMULIN R 100 UNIT/ML 3ML SQ SCH ×3 (06:47→17:38)
[2021-02-01] MEDS: [UNRECOGNIZED DRUG - OTHER] IV SCH ×3 (08:05→22:48)
[2021-02-01] MEDS: VALPROIC ACID IV SCH ×3 (08:05→22:48)
[2021-02-01] MEDS: PANTOPRAZOLE 40 MG/VIAL IVP SCH (08:41)
[2021-02-01] MEDS: MIDODRINE HCL 5 MG TABLET PO SCH ×3 (08:41→20:20)
[2021-02-01] MEDS: CEFTRIAXONE 2GM VIAL IVP SCH ×2 (08:41→20:15)
[2021-02-01] MEDS: ENOXAPARIN SODIUM 40 MG/0.4 ML SYRINGE SQ SCH (08:42)
[2021-02-01] MEDS: LACOSAMIDE 200 MG/20 ML VIAL IV SCH ×2 (08:42→21:19)
[2021-02-01] MEDS: NOREPINEPHRINE 4MG/NS 250ML 250 ML IV PRN (09:28)
[2021-02-01 12:17] LABS: ABG BASE EXCESS 5.4 mmol/L (-2.0-3.0); ABG HCO3 29.8 mmol/L (21.0-28.0); ABG OXYGEN SATURATION 94.9 % (95.0-99.0); ABG PCO2 43 mmHg (35-48)
[2021-02-01] MEDS ORDERED: PROPOFOL 1000 MG/100 ML 100 ML IV ONE (16:09)
[2021-02-01] MEDS: PROPOFOL 1000 MG/100 ML 100 ML IV PRN (16:29)
[2021-02-01] MEDS: ARTIFICIAL TEARS 3.5 GM OINTMENT OU SCH (21:00)
[2021-02-01] MEDS ORDERED: LACOSAMIDE 200 MG/20 ML VIAL IV SCH (21:00)
[2021-02-02] VITALS (23 sets, daily range): BP systolic 83–129; BP diastolic 50–74
[2021-02-02] MEDS: PROPOFOL 1000 MG/100 ML 100 ML IV PRN ×2 (00:32→19:47)
[2021-02-02] MEDS: NOREPINEPHRINE 4MG/NS 250ML 250 ML IV PRN (00:35)
[2021-02-02] MEDS: PHARMACY COMMUNICATION MISC SCH ×13 (00:59→16:52)
[2021-02-02] MEDS: NACL 0.9% IV SCH ×3 (01:00→17:48)
[2021-02-02] MEDS: ACYCLOVIR IV SCH ×3 (01:00→17:48)
[2021-02-02] MEDS: CHLORHEXIDINE GLUCONATE 473 ML MOUTHWASH MM SCH ×4 (02:35→20:16)
[2021-02-02] MEDS: FUROSEMIDE 20MG VIAL IV SCH ×3 (02:57→19:56)
[2021-02-02] MEDS: METRONIDAZOLE 500MG/100ML BAG 100 ML IVPB SCH ×3 (04:28→22:24)
[2021-02-02] MEDS: LEVETIRACETAM 1,000 MG in 0.9%NACL 100ML 100 ML IV SCH ×3 (04:28→21:42)
[2021-02-02] MEDS: INSULIN HUMULIN R 100 UNIT/ML 3ML SQ SCH ×4 (05:25→18:00)
[2021-02-02 05:27] LABS: HEMATOCRIT 37.1 % (42-54); MEAN CORPUSCULAR HEMOGLOBIN 28.5 pg (27.0-33.0); MEAN CORPUSCULAR HGB CONC 30.7 g/dL (32.0-36.0); MEAN CORPUSCULAR VOLUME 92.8 fL (79-99); RED CELL DISTRIBUTION WIDTH 17.8 % (11.0-15.5); WHITE BLOOD COUNT (AUTO) 10.9 K/uL (4.8-10.8)
[2021-02-02 05:40] LABS: ALBUMIN 2.2 g/dL (3.5-5.0); CREATININE 1.1 mg/dL (0.5-1.5); POTASSIUM 3.6 mmol/L (3.5-5.1)
[2021-02-02] MEDS: FOSPHENYTOIN SODIUM 100 MG in 0.9%NACL 50ML 50 ML IV SCH ×3 (05:54→20:58)
[2021-02-02] MEDS: VANCOMYCIN 500MG+NS 100ML IVPB IV SCH ×2 (06:08→18:13)
[2021-02-02] MEDS: 0.9%NACL 100ML 100 ML IV SCH ×2 (06:08→18:13)
[2021-02-02 06:12] LABS: ALBUMIN 2.2 g/dL (3.5-5.0)
[2021-02-02 06:23] LABS: PHENYTOIN (DILANTIN) 5.3 mcg/mL (10.0-20.0)
[2021-02-02] MEDS: LACOSAMIDE 200 MG/20 ML VIAL IV SCH ×2 (07:47→20:58)
[2021-02-02] MEDS: ENOXAPARIN SODIUM 40 MG/0.4 ML SYRINGE SQ SCH (07:52)
[2021-02-02] MEDS: CEFTRIAXONE 2GM VIAL IVP SCH ×2 (07:52→20:17)
[2021-02-02] MEDS: PANTOPRAZOLE 40 MG/VIAL IVP SCH (07:54)
[2021-02-02] MEDS: [UNRECOGNIZED DRUG - OTHER] IV SCH ×3 (07:56→23:27)
[2021-02-02] MEDS: VALPROIC ACID IV SCH ×3 (07:56→23:27)
[2021-02-02] MEDS: MIDODRINE HCL 5 MG TABLET PO SCH ×3 (08:23→20:17)
[2021-02-02] MEDS ORDERED: ALBUMIN (HUMAN) 25% 100 ML IV PRN (12:00)
[2021-02-02] MEDS ORDERED: NOREPINEPHRINE BITARTRATE 8 MG in 0.9% NACL 250ML 250 ML IV SCH (12:00)
[2021-02-02] MEDS: NOREPINEPHRINE 4MG/NS 250ML 250 ML IV SCH (17:44)
[2021-02-02] MEDS: ARTIFICIAL TEARS 3.5 GM OINTMENT OU SCH (20:17)
[2021-02-03] VITALS (24 sets, daily range): BP systolic 101–152; BP diastolic 55–104
[2021-02-03] MEDS: ACYCLOVIR IV SCH ×2 (01:15→09:38)
[2021-02-03] MEDS: NACL 0.9% IV SCH ×2 (01:15→09:38)
[2021-02-03] MEDS: CHLORHEXIDINE GLUCONATE 473 ML MOUTHWASH MM SCH ×4 (01:17→21:24)
[2021-02-03] MEDS: FUROSEMIDE 20MG VIAL IV SCH ×4 (02:15→21:24)
[2021-02-03 03:10] LABS: VARICELLA IGG ANTIBODY CSF <10.0 IV (.)
[2021-02-03 03:55] LABS: HEMATOCRIT 37.7 % (42-54); MEAN CORPUSCULAR HEMOGLOBIN 29.4 pg (27.0-33.0); MEAN CORPUSCULAR HGB CONC 31.3 g/dL (32.0-36.0); MEAN CORPUSCULAR VOLUME 93.8 fL (79-99); RED BLOOD CELL COUNT(AUTO) 4.02 MIL/uL (4.50-6.20); RED CELL DISTRIBUTION WIDTH 17.9 % (11.0-15.5)
[2021-02-03 04:07] LABS: ALBUMIN 2.4 g/dL (3.5-5.0); BILIRUBIN,TOTAL 0.5 mg/dL (0.2-1.0); POTASSIUM 3.4 mmol/L (3.5-5.1); TOTAL PROTEIN, SERUM 6.1 g/dL (6.0-8.3)
[2021-02-03] MEDS: LEVETIRACETAM 1,000 MG in 0.9%NACL 100ML 100 ML IV SCH ×3 (05:33→21:27)
[2021-02-03] MEDS: FOSPHENYTOIN SODIUM 100 MG in 0.9%NACL 50ML 50 ML IV SCH ×3 (05:33→21:27)
[2021-02-03] MEDS: 0.9%NACL 100ML 100 ML IV SCH (05:34)
[2021-02-03] MEDS: VANCOMYCIN 500MG+NS 100ML IVPB IV SCH (05:34)
[2021-02-03] MEDS: INSULIN HUMULIN R 100 UNIT/ML 3ML SQ SCH ×4 (05:34→18:00)
[2021-02-03] MEDS: METRONIDAZOLE 500MG/100ML BAG 100 ML IVPB SCH ×2 (06:11→13:55)
[2021-02-03] MEDS: PHARMACY COMMUNICATION MISC SCH ×2 (08:00→15:49)
[2021-02-03] MEDS: [UNRECOGNIZED DRUG - OTHER] IV SCH ×3 (08:19→22:14)
[2021-02-03] MEDS: VALPROIC ACID IV SCH ×3 (08:19→22:14)
[2021-02-03] MEDS: LACOSAMIDE 200 MG/20 ML VIAL IV SCH ×2 (08:21→22:14)
[2021-02-03] MEDS: MIDODRINE HCL 5 MG TABLET PO SCH ×3 (08:28→21:26)
[2021-02-03] MEDS: ENOXAPARIN SODIUM 40 MG/0.4 ML SYRINGE SQ SCH (08:29)
[2021-02-03] MEDS: NOREPINEPHRINE 4MG/NS 250ML 250 ML IV SCH (08:43)
[2021-02-03] MEDS: PANTOPRAZOLE 40 MG/VIAL IVP SCH (08:44)
[2021-02-03] MEDS: CEFTRIAXONE 2GM VIAL IVP SCH (08:50)
[2021-02-03] MEDS ORDERED: [UNRECOGNIZED DRUG - OTHER] IV SCH (10:00)
[2021-02-03] MEDS ORDERED: FOSPHENYTOIN SODIUM IV SCH (10:00)
[2021-02-03] MEDS ORDERED: POTASSIUM CHLORIDE 20MEQ/100ML 100 ML IV PRN (15:00)
[2021-02-03] MEDS ORDERED: KCL 20 MEQ ERTAB PO PRN (15:00)
[2021-02-03] MEDS: PROPOFOL 1000 MG/100 ML 100 ML IV PRN ×2 (16:41→21:34)
[2021-02-03] MEDS ORDERED: NOREPINEPHRINE 8MG/NS 250 ML 250 ML IV ONE (17:16)
[2021-02-03] MEDS ORDERED: NOREPINEPHRINE 4MG/NS 250ML 4 MG/250 ML IV.SOLN IV SCH (19:00)
[2021-02-03] MEDS ORDERED: NOREPINEPHRINE 4MG/NS 250ML 250 ML IV SCH (19:00)
[2021-02-03] MEDS: ARTIFICIAL TEARS 3.5 GM OINTMENT OU SCH (21:26)
[2021-02-03] MEDS: POTASSIUM CHLORIDE 10% ELIXIR 20 MEQ/15 ML UDCUP PO SCH (21:26)
[2021-02-04] VITALS (24 sets, daily range): BP systolic 95–135; BP diastolic 51–82
[2021-02-04] MEDS: ALBUTEROL 0.083% 2.5 MG/3 ML INH IH PRN ×4 (00:52→19:16)
[2021-02-04] MEDS: ACETYLCYSTEINE 10% 100MG/ML 4ML VIAL IH SCH ×4 (00:52→19:16)
[2021-02-04] MEDS: CHLORHEXIDINE GLUCONATE 473 ML MOUTHWASH MM SCH ×4 (02:07→20:19)
[2021-02-04 03:09] LABS: HSV 1/2 COMBINED AB IGG CSF 4.43 IV (<=0.89); HSV TYPE 1/2 COMBINED IGM CSF 0.16 IV (<=0.89); MUMPS VIRUS IGG ANTIBODY CSF <5.0 AU/mL (<=10.9); MUMPS VIRUS IGM ANTIBODY CSF 0.08 IV (<=0.79); RUBEOLA (MEASLES) IGM CSF 0.11 AU (0.00-0.79); VARICELLA IGG ANTIBODY CSF <10.0 IV (.); WEST NILE VIRUS IGG CSF 0.22 IV (<=1.29); WEST NILE VIRUS IGM AB CSF 0.02 IV (<=0.89)
[2021-02-04 03:52] LABS: HEMATOCRIT 39.8 % (42-54); MEAN CORPUSCULAR HEMOGLOBIN 28.4 pg (27.0-33.0); MEAN CORPUSCULAR HGB CONC 30.4 g/dL (32.0-36.0); MEAN CORPUSCULAR VOLUME 93.4 fL (79-99); PLATELET COUNT (AUTO) 233 K/uL (130-400); RED BLOOD CELL COUNT(AUTO) 4.26 MIL/uL (4.50-6.20); WHITE BLOOD COUNT (AUTO) 9.6 K/uL (4.8-10.8)
[2021-02-04 03:54] LABS: POTASSIUM 3.6 mmol/L (3.5-5.1)
[2021-02-04] MEDS: FOSPHENYTOIN SODIUM 100 MG in 0.9%NACL 50ML 50 ML IV SCH ×3 (05:15→21:43)
[2021-02-04] MEDS: LEVETIRACETAM 1,000 MG in 0.9%NACL 100ML 100 ML IV SCH ×3 (05:15→21:00)
[2021-02-04] MEDS: INSULIN HUMULIN R 100 UNIT/ML 3ML SQ SCH ×4 (06:00→18:00)
[2021-02-04] MEDS: PROPOFOL 1000 MG/100 ML 100 ML IV PRN ×3 (06:27→22:37)
[2021-02-04] MEDS: PHARMACY COMMUNICATION MISC SCH ×3 (08:00→15:52)
[2021-02-04] MEDS: PANTOPRAZOLE 40 MG/VIAL IVP SCH (09:01)
[2021-02-04] MEDS: FUROSEMIDE 20MG VIAL IV SCH ×2 (09:06→20:28)
[2021-02-04] MEDS: VALPROIC ACID IV SCH ×3 (09:12→22:43)
[2021-02-04] MEDS: [UNRECOGNIZED DRUG - OTHER] IV SCH ×3 (09:12→22:43)
[2021-02-04] MEDS: POTASSIUM CHLORIDE 10% ELIXIR 20 MEQ/15 ML UDCUP PO SCH ×2 (09:14→20:28)
[2021-02-04] MEDS: MIDODRINE HCL 5 MG TABLET PO SCH ×3 (09:14→20:27)
[2021-02-04] MEDS: ENOXAPARIN SODIUM 40 MG/0.4 ML SYRINGE SQ SCH (09:16)
[2021-02-04] MEDS ORDERED: METOCLOPRAMIDE 10 MG/2 ML VIAL IVP ONE (10:00)
[2021-02-04] MEDS: LACOSAMIDE 200 MG/20 ML VIAL IV SCH ×2 (10:31→20:28)
[2021-02-04] MEDS ORDERED: PHARMACY COMMUNICATION MISC SCH (20:00)
[2021-02-04] MEDS: ARTIFICIAL TEARS 3.5 GM OINTMENT OU SCH (20:29)
[2021-02-04] MEDS: POTASSIUM CHLORIDE 10% ELIXIR 20 MEQ/15 ML UDCUP PO PRN (20:34)
[2021-02-05] VITALS (27 sets, daily range): BP systolic 96–125; BP diastolic 42–69
[2021-02-05] MEDS: ALBUTEROL 0.083% 2.5 MG/3 ML INH IH PRN ×2 (00:05→19:25)
[2021-02-05] MEDS: ACETYLCYSTEINE 10% 100MG/ML 4ML VIAL IH SCH ×4 (00:05→19:24)
[2021-02-05] MEDS: CHLORHEXIDINE GLUCONATE 473 ML MOUTHWASH MM SCH ×4 (02:04→20:08)
[2021-02-05 03:57] LABS: HEMATOCRIT 34.8 % (42-54); MEAN CORPUSCULAR HEMOGLOBIN 29.3 pg (27.0-33.0); MEAN CORPUSCULAR HGB CONC 30.7 g/dL (32.0-36.0); MEAN CORPUSCULAR VOLUME 95.3 fL (79-99); RED BLOOD CELL COUNT(AUTO) 3.65 MIL/uL (4.50-6.20); RED CELL DISTRIBUTION WIDTH 17.9 % (11.0-15.5); WHITE BLOOD COUNT (AUTO) 5.9 K/uL (4.8-10.8)
[2021-02-05 04:19] LABS: PHENYTOIN (DILANTIN) 5.8 mcg/mL (10.0-20.0); POTASSIUM 3.9 mmol/L (3.5-5.1)
[2021-02-05] MEDS: LEVETIRACETAM 1,000 MG in 0.9%NACL 100ML 100 ML IV SCH ×3 (05:17→21:24)
[2021-02-05] MEDS: FOSPHENYTOIN SODIUM 100 MG in 0.9%NACL 50ML 50 ML IV SCH (05:40)
[2021-02-05] MEDS: INSULIN HUMULIN R 100 UNIT/ML 3ML SQ SCH ×4 (05:41→16:25)
[2021-02-05] MEDS: [UNRECOGNIZED DRUG - OTHER] IV SCH ×3 (07:46→22:39)
[2021-02-05] MEDS: VALPROIC ACID IV SCH ×3 (07:46→22:39)
[2021-02-05] MEDS: METOCLOPRAMIDE 10 MG/2 ML VIAL IVP SCH ×3 (07:46→21:25)
[2021-02-05] MEDS: LACOSAMIDE 200 MG/20 ML VIAL IV SCH ×2 (07:47→20:09)
[2021-02-05] MEDS: FUROSEMIDE 20MG VIAL IV SCH ×2 (07:47→20:08)
[2021-02-05] MEDS: PANTOPRAZOLE 40 MG/VIAL IVP SCH (07:47)
[2021-02-05] MEDS: ENOXAPARIN SODIUM 40 MG/0.4 ML SYRINGE SQ SCH (07:48)
[2021-02-05] MEDS: POTASSIUM CHLORIDE 10% ELIXIR 20 MEQ/15 ML UDCUP PO SCH ×2 (07:50→20:09)
[2021-02-05] MEDS: MIDODRINE HCL 5 MG TABLET PO SCH ×3 (07:50→20:10)
[2021-02-05] MEDS: PHARMACY COMMUNICATION MISC SCH ×3 (08:39→16:00)
[2021-02-05] MEDS: FOSPHENYTOIN SODIUM IV SCH ×2 (14:35→21:24)
[2021-02-05] MEDS: [UNRECOGNIZED DRUG - OTHER] IV SCH ×2 (14:35→21:24)
[2021-02-05] MEDS: ARTIFICIAL TEARS 3.5 GM OINTMENT OU SCH (20:10)
[2021-02-06] VITALS (24 sets, daily range): BP systolic 98–135; BP diastolic 53–83
[2021-02-06] MEDS: PHARMACY COMMUNICATION MISC SCH ×3 (00:10→14:58)
[2021-02-06] MEDS: ACETYLCYSTEINE 10% 100MG/ML 4ML VIAL IH SCH ×4 (01:05→19:06)
[2021-02-06] MEDS: CHLORHEXIDINE GLUCONATE 473 ML MOUTHWASH MM SCH ×4 (01:30→19:58)
[2021-02-06 03:48] LABS: ALBUMIN 2.2 g/dL (3.5-5.0); BILIRUBIN,TOTAL 0.7 mg/dL (0.2-1.0); CREATININE 1.1 mg/dL (0.5-1.5); MAGNESIUM 2.3 mg/dL (1.80-2.40); POTASSIUM 4.4 mmol/L (3.5-5.1); TOTAL PROTEIN, SERUM 6.1 g/dL (6.0-8.3)
[2021-02-06 04:03] LABS: BASOPHILS % (AUTO) 0.1 % (0.0-5.0); EOSINOPHILS % (AUTO) 0.4 % (0.0-8.0); HEMATOCRIT 36.2 % (42-54); LYMPHOCYTES % (AUTO) 12.5 % (21.0-51.0); MEAN CORPUSCULAR HGB CONC 31.2 g/dL (32.0-36.0); MEAN CORPUSCULAR VOLUME 92.8 fL (79-99); MONOCYTES % (AUTO) 9.4 % (3.0-13.0); NEUTROPHILS % (AUTO) 77.2 % (40.0-77.0); PLATELET COUNT (AUTO) 137 K/uL (130-400)
[2021-02-06] MEDS: INSULIN HUMULIN R 100 UNIT/ML 3ML SQ SCH ×4 (05:36→17:19)
[2021-02-06] MEDS: LEVETIRACETAM 1,000 MG in 0.9%NACL 100ML 100 ML IV SCH ×3 (05:39→21:06)
[2021-02-06] MEDS: METOCLOPRAMIDE 10 MG/2 ML VIAL IVP SCH ×3 (05:39→21:06)
[2021-02-06] MEDS: FOSPHENYTOIN SODIUM IV SCH ×3 (05:39→21:06)
[2021-02-06] MEDS: [UNRECOGNIZED DRUG - OTHER] IV SCH ×3 (05:39→21:06)
[2021-02-06] MEDS: ALBUTEROL 0.083% 2.5 MG/3 ML INH IH PRN ×2 (06:19→19:06)
[2021-02-06] MEDS: [UNRECOGNIZED DRUG - OTHER] IV SCH ×3 (07:10→23:07)
[2021-02-06] MEDS: VALPROIC ACID IV SCH ×3 (07:10→23:07)
[2021-02-06 07:50] LABS: ABG BASE EXCESS 6.1 mmol/L (-2.0-3.0); ABG OXYGEN SATURATION 95.2 % (95.0-99.0); ABG PCO2 40 mmHg (35-48)
[2021-02-06] MEDS: FUROSEMIDE 20MG VIAL IV SCH ×2 (07:54→20:01)
[2021-02-06] MEDS: PANTOPRAZOLE 40 MG/VIAL IVP SCH (07:54)
[2021-02-06] MEDS: POTASSIUM CHLORIDE 10% ELIXIR 20 MEQ/15 ML UDCUP PO SCH ×2 (07:54→20:03)
[2021-02-06] MEDS: LACOSAMIDE 200 MG/20 ML VIAL IV SCH ×2 (07:55→21:06)
[2021-02-06] MEDS: ENOXAPARIN SODIUM 40 MG/0.4 ML SYRINGE SQ SCH (07:55)
[2021-02-06] MEDS: MIDODRINE HCL 5 MG TABLET PO SCH ×3 (07:57→20:03)
[2021-02-06] MEDS ORDERED: CEFTRIAXONE 2GM VIAL IVP SCH (08:00)
[2021-02-06] MEDS ORDERED: FLUCONAZOLE 400 MG/NS 200 ML 200 ML IV SCH (09:00)
[2021-02-06] MEDS: SULFAMETHOX-TMP DS 800/160 TAB NG SCH (20:02)
[2021-02-06] MEDS: ARTIFICIAL TEARS 3.5 GM OINTMENT OU SCH (20:02)
[2021-02-06] MEDS ORDERED: SULFAMETHOX-TMP DS 800/160 TAB PO SCH (21:00)
[2021-02-07] VITALS (24 sets, daily range): BP systolic 95–142; BP diastolic 55–85
[2021-02-07] MEDS: ALBUTEROL 0.083% 2.5 MG/3 ML INH IH PRN ×3 (00:37→18:37)
[2021-02-07] MEDS: ACETYLCYSTEINE 10% 100MG/ML 4ML VIAL IH SCH ×4 (00:37→18:37)
[2021-02-07] MEDS: CHLORHEXIDINE GLUCONATE 473 ML MOUTHWASH MM SCH ×4 (01:14→20:06)
[2021-02-07 04:15] LABS: HEMATOCRIT 35.6 % (42-54); MEAN CORPUSCULAR HEMOGLOBIN 28.5 pg (27.0-33.0); MEAN CORPUSCULAR HGB CONC 30.3 g/dL (32.0-36.0); MEAN CORPUSCULAR VOLUME 93.9 fL (79-99); RED BLOOD CELL COUNT(AUTO) 3.79 MIL/uL (4.50-6.20); RED CELL DISTRIBUTION WIDTH 18.2 % (11.0-15.5)
[2021-02-07 04:31] LABS: MAGNESIUM 2.1 mg/dL (1.80-2.40); PHOSPHORUS 3.2 mg/dL (2.5-4.9); POTASSIUM 3.9 mmol/L (3.5-5.1)
[2021-02-07] MEDS: METOCLOPRAMIDE 10 MG/2 ML VIAL IVP SCH ×3 (05:24→21:00)
[2021-02-07] MEDS: LEVETIRACETAM 1,000 MG in 0.9%NACL 100ML 100 ML IV SCH ×3 (05:25→21:00)
[2021-02-07] MEDS: [UNRECOGNIZED DRUG - OTHER] IV SCH ×3 (05:25→21:01)
[2021-02-07] MEDS: FOSPHENYTOIN SODIUM IV SCH ×3 (05:25→21:01)
[2021-02-07] MEDS: INSULIN HUMULIN R 100 UNIT/ML 3ML SQ SCH ×4 (05:27→17:47)
[2021-02-07] MEDS: VALPROIC ACID IV SCH ×3 (06:35→22:20)
[2021-02-07] MEDS: [UNRECOGNIZED DRUG - OTHER] IV SCH ×3 (06:35→22:20)
[2021-02-07] MEDS: PHARMACY COMMUNICATION MISC SCH ×2 (08:00)
[2021-02-07] MEDS: FUROSEMIDE 20MG VIAL IV SCH ×2 (08:10→20:06)
[2021-02-07] MEDS: PANTOPRAZOLE 40 MG/VIAL IVP SCH (08:10)
[2021-02-07] MEDS: SULFAMETHOX-TMP DS 800/160 TAB NG SCH ×2 (08:11→19:35)
[2021-02-07] MEDS: POTASSIUM CHLORIDE 10% ELIXIR 20 MEQ/15 ML UDCUP PO SCH ×2 (08:11→19:35)
[2021-02-07] MEDS: ENOXAPARIN SODIUM 40 MG/0.4 ML SYRINGE SQ SCH (08:12)
[2021-02-07] MEDS: LACOSAMIDE 200 MG/20 ML VIAL IV SCH ×2 (08:17→20:53)
[2021-02-07] MEDS: MIDODRINE HCL 5 MG TABLET PO SCH ×3 (08:34→19:36)
[2021-02-07] MEDS: BALSAM PERU/CASTOR OIL 60 GM TUBE TP SCH ×2 (12:42→20:07)
[2021-02-07] MEDS: ARTIFICIAL TEARS 3.5 GM OINTMENT OU SCH (20:07)
[2021-02-08] VITALS (38 sets, daily range): BP systolic 84–151; BP diastolic 40–89
[2021-02-08] MEDS: ALBUTEROL 0.083% 2.5 MG/3 ML INH IH PRN ×3 (00:14→11:25)
[2021-02-08] MEDS: ACETYLCYSTEINE 10% 100MG/ML 4ML VIAL IH SCH ×5 (00:14→22:38)
[2021-02-08] MEDS: CHLORHEXIDINE GLUCONATE 473 ML MOUTHWASH MM SCH ×4 (01:01→19:33)
[2021-02-08 03:41] LABS: MEAN CORPUSCULAR HEMOGLOBIN 28.9 pg (27.0-33.0); MEAN CORPUSCULAR HGB CONC 30.6 g/dL (32.0-36.0); MEAN CORPUSCULAR VOLUME 94.5 fL (79-99); RED BLOOD CELL COUNT(AUTO) 3.81 MIL/uL (4.50-6.20); RED CELL DISTRIBUTION WIDTH 18.1 % (11.0-15.5); WHITE BLOOD COUNT (AUTO) 7.9 K/uL (4.8-10.8)
[2021-02-08 03:48] LABS: CREATININE 0.8 mg/dL (0.5-1.5); MAGNESIUM 2.2 mg/dL (1.80-2.40); PHOSPHORUS 3.4 mg/dL (2.5-4.9); POTASSIUM 3.7 mmol/L (3.5-5.1)
[2021-02-08] MEDS: INSULIN HUMULIN R 100 UNIT/ML 3ML SQ SCH ×5 (04:59→23:57)
[2021-02-08] MEDS: FOSPHENYTOIN SODIUM IV SCH ×3 (05:36→22:46)
[2021-02-08] MEDS: [UNRECOGNIZED DRUG - OTHER] IV SCH ×3 (05:36→22:46)
[2021-02-08] MEDS: METOCLOPRAMIDE 10 MG/2 ML VIAL IVP SCH ×2 (05:36→13:20)
[2021-02-08] MEDS: LEVETIRACETAM 1,000 MG in 0.9%NACL 100ML 100 ML IV SCH ×3 (05:36→22:46)
[2021-02-08] MEDS: VALPROIC ACID IV SCH ×3 (06:25→22:46)
[2021-02-08] MEDS: [UNRECOGNIZED DRUG - OTHER] IV SCH ×3 (06:25→22:46)
[2021-02-08] MEDS: PANTOPRAZOLE 40 MG/VIAL IVP SCH (08:52)
[2021-02-08] MEDS: FUROSEMIDE 20MG VIAL IV SCH ×2 (08:52→20:35)
[2021-02-08] MEDS: ENOXAPARIN SODIUM 40 MG/0.4 ML SYRINGE SQ SCH (08:54)
[2021-02-08] MEDS: BALSAM PERU/CASTOR OIL 60 GM TUBE TP SCH ×3 (08:57→20:35)
[2021-02-08] MEDS: MIDODRINE HCL 5 MG TABLET PO SCH ×3 (09:00→19:34)
[2021-02-08] MEDS: SULFAMETHOX-TMP DS 800/160 TAB NG SCH ×2 (09:00→19:33)
[2021-02-08] MEDS: POTASSIUM CHLORIDE 10% ELIXIR 20 MEQ/15 ML UDCUP PO SCH ×2 (09:00→19:33)
[2021-02-08] MEDS: LACOSAMIDE 200 MG/20 ML VIAL IV SCH ×3 (09:09→20:35)
[2021-02-08] MEDS: IPRATROPIUM/ALBUTEROL SULFATE 3 ML SOLUTION IH SCH ×4 (10:00→22:38)
[2021-02-08] MEDS: ARTIFICIAL TEARS 3.5 GM OINTMENT OU SCH (20:35)
[2021-02-08] MEDS ORDERED: LORAZEPAM 2 MG/ML 1 ML VIAL ONE (20:44)
[2021-02-08] MEDS ORDERED: IPRATROPIUM 0.5 MG/2.5 ML INH IH SCH (22:00)
[2021-02-08] MEDS ORDERED: ALBUTEROL 0.083% 2.5 MG/3 ML INH IH PRN (22:30)
[2021-02-08] MEDS: LEVOFLOXACIN 500 MG/D5W 100 ML 100 ML IV SCH (22:45)
[2021-02-08] MEDS: DEXTROSE 5%-WATER 1,000 ML IV SCH (22:45)
[2021-02-08] MEDS: FLUCONAZOLE 200 MG/NS 100 ML 100 ML IV SCH (22:45)
[2021-02-09] VITALS (15 sets, daily range): BP systolic 93–136; BP diastolic 48–82
[2021-02-09] MEDS ORDERED: IPRATROPIUM 0.5 MG/2.5 ML INH IH SCH
[2021-02-09] MEDS: CHLORHEXIDINE GLUCONATE 473 ML MOUTHWASH MM SCH ×4 (01:02→20:23)
[2021-02-09] MEDS: IPRATROPIUM/ALBUTEROL SULFATE 3 ML SOLUTION IH SCH ×6 (02:34→22:00)
[2021-02-09 03:53] LABS: HEMATOCRIT 35.5 % (42-54); MEAN CORPUSCULAR HEMOGLOBIN 28.9 pg (27.0-33.0); MEAN CORPUSCULAR HGB CONC 30.4 g/dL (32.0-36.0); MEAN CORPUSCULAR VOLUME 94.9 fL (79-99); RED BLOOD CELL COUNT(AUTO) 3.74 MIL/uL (4.50-6.20); RED CELL DISTRIBUTION WIDTH 18.2 % (11.0-15.5); WHITE BLOOD COUNT (AUTO) 7.3 K/uL (4.8-10.8)
[2021-02-09 04:05] LABS: POTASSIUM 4.1 mmol/L (3.5-5.1)
[2021-02-09] MEDS: LEVETIRACETAM 1,000 MG in 0.9%NACL 100ML 100 ML IV SCH ×3 (05:27→20:26)
[2021-02-09] MEDS: FOSPHENYTOIN SODIUM IV SCH ×3 (05:27→20:26)
[2021-02-09] MEDS: INSULIN HUMULIN R 100 UNIT/ML 3ML SQ SCH ×3 (05:27→18:00)
[2021-02-09] MEDS: [UNRECOGNIZED DRUG - OTHER] IV SCH ×3 (05:27→20:26)
[2021-02-09] MEDS: ACETYLCYSTEINE 10% 100MG/ML 4ML VIAL IH SCH ×4 (06:22→23:00)
[2021-02-09] MEDS: [UNRECOGNIZED DRUG - OTHER] IV SCH ×3 (07:25→20:25)
[2021-02-09] MEDS: VALPROIC ACID IV SCH ×3 (07:25→20:25)
[2021-02-09] MEDS: FLUCONAZOLE 200 MG/NS 100 ML 100 ML IV SCH ×2 (07:30→20:26)
[2021-02-09] MEDS: PANTOPRAZOLE 40 MG/VIAL IVP SCH (07:34)
[2021-02-09] MEDS: LACOSAMIDE 200 MG/20 ML VIAL IV SCH ×2 (07:34→20:24)
[2021-02-09] MEDS: FUROSEMIDE 20MG VIAL IV SCH ×2 (07:34→20:24)
[2021-02-09] MEDS: BALSAM PERU/CASTOR OIL 60 GM TUBE TP SCH ×3 (07:35→20:24)
[2021-02-09] MEDS: POTASSIUM CHLORIDE 10% ELIXIR 20 MEQ/15 ML UDCUP PO SCH ×2 (10:52→20:25)
[2021-02-09] MEDS: SULFAMETHOX-TMP DS 800/160 TAB NG SCH ×2 (10:53→20:24)
[2021-02-09] MEDS: ENOXAPARIN SODIUM 40 MG/0.4 ML SYRINGE SQ SCH (10:54)
[2021-02-09] MEDS ORDERED: MIDODRINE HCL 5 MG TABLET PO PRN (11:00)
[2021-02-09] MEDS: DEXTROSE 5%-WATER 1,000 ML IV SCH (14:47)
[2021-02-09 19:41] LABS: APPEARANCE,URINE Clear (CLEAR); BILIRUBIN,URINE Moderate (NEGATIVE); COLOR,URINE Dark Yellow (YELLOW); GLUCOSE, URINE (UA) Negative (NEGATIVE); KETONES,URINE Trace mg/dL (NEGATIVE); LEUKOCYTE ESTERASE ,URINE Trace (NEGATIVE); NITRATE,URINE Negative (NEGATIVE); OCCULT BLOOD,URINE Large (NEGATIVE); PROTEIN,URINE POS 2+ mg/dL (NEGATIVE)
[2021-02-09 19:53] LABS: BACTERIA,URINE Rare /HPF (None Seen)
[2021-02-09 19:54] LABS: MUCUS,URINE Rare LPF (None Seen); RBC,URINE 51-100 /HPF (0-1); SQUAMOUS EPITHELIAL CELL,UR Rare /HPF (0-2)
[2021-02-09] MEDS: ARTIFICIAL TEARS 3.5 GM OINTMENT OU SCH (20:24)
[2021-02-09] MEDS: LEVOFLOXACIN 500 MG/D5W 100 ML 100 ML IV SCH (20:26)
[2021-02-09] MEDS ORDERED: METOPROLOL TARTRATE 1 MG/ML 5ML VIAL IV ONE ×2 (22:25→22:30)
[2021-02-09] MEDS ORDERED: LORAZEPAM 2 MG/ML 1 ML VIAL IVP ONE (22:30)
[2021-02-09] MEDS: LORAZEPAM 2 MG/ML 1 ML VIAL IVP PRN (22:40)
[2021-02-09] MEDS ORDERED: FUROSEMIDE 40MG VIAL IV ONE (23:00)
[2021-02-09] MEDS ORDERED: FUROSEMIDE 40MG VIAL ONE (23:07)
[2021-02-10] MEDS: CHLORHEXIDINE GLUCONATE 473 ML MOUTHWASH MM SCH ×4 (01:23→20:33)
[2021-02-10 01:44] LABS: ABG BASE EXCESS 1.7 mmol/L (-2.0-3.0); ABG HCO3 26.6 mmol/L (21.0-28.0); ABG OXYGEN SATURATION 98.8 % (95.0-99.0); ABG PCO2 43 mmHg (35-48)
[2021-02-10] MEDS: IPRATROPIUM/ALBUTEROL SULFATE 3 ML SOLUTION IH SCH ×6 (02:22→22:01)
[2021-02-10] MEDS: ACETYLCYSTEINE 10% 100MG/ML 4ML VIAL IH SCH ×6 (02:22→22:01)
[2021-02-10 04:04] VITALS: BP 93/60
[2021-02-10 04:28] LABS: HEMATOCRIT 33.6 % (42-54); MEAN CORPUSCULAR HEMOGLOBIN 28.9 pg (27.0-33.0); MEAN CORPUSCULAR HGB CONC 30.7 g/dL (32.0-36.0); MEAN CORPUSCULAR VOLUME 94.4 fL (79-99); RED BLOOD CELL COUNT(AUTO) 3.56 MIL/uL (4.50-6.20); RED CELL DISTRIBUTION WIDTH 18.1 % (11.0-15.5); WHITE BLOOD COUNT (AUTO) 7.8 K/uL (4.8-10.8)
[2021-02-10 04:42] LABS: ALBUMIN 1.8 g/dL (3.5-5.0); BILIRUBIN,TOTAL 0.6 mg/dL (0.2-1.0); TOTAL PROTEIN, SERUM 5.7 g/dL (6.0-8.3)
[2021-02-10] MEDS: INSULIN HUMULIN R 100 UNIT/ML 3ML SQ SCH ×4 (06:00→15:54)
[2021-02-10] MEDS: LEVETIRACETAM 1,000 MG in 0.9%NACL 100ML 100 ML IV SCH ×3 (06:03→21:12)
[2021-02-10] MEDS: VALPROIC ACID IV SCH ×3 (06:03→23:21)
[2021-02-10] MEDS: [UNRECOGNIZED DRUG - OTHER] IV SCH ×3 (06:03→23:21)
[2021-02-10] MEDS: [UNRECOGNIZED DRUG - OTHER] IV SCH ×3 (06:05→21:14)
[2021-02-10] MEDS: FOSPHENYTOIN SODIUM IV SCH ×3 (06:05→21:14)
[2021-02-10 06:48] LABS: INR 1.16 (0.85-1.15); PROTHROMBIN TIME 12.5 SEC (9.6-11.6)
[2021-02-10 06:50] LABS: PARTIAL THROMBOPLASTIN TIME 21.9 SEC (26.3-35.5)
[2021-02-10 08:00] VITALS: BP 86/65
[2021-02-10] MEDS: POTASSIUM CHLORIDE 10% ELIXIR 20 MEQ/15 ML UDCUP PO SCH ×2 (09:00→19:26)
[2021-02-10] MEDS: SULFAMETHOX-TMP DS 800/160 TAB NG SCH ×2 (09:00→19:29)
[2021-02-10] MEDS: FUROSEMIDE 20MG VIAL IV SCH ×2 (09:00→20:29)
[2021-02-10] MEDS: PANTOPRAZOLE 40 MG/VIAL IVP SCH (10:55)
[2021-02-10] MEDS: ENOXAPARIN SODIUM 40 MG/0.4 ML SYRINGE SQ SCH (10:58)
[2021-02-10] MEDS: LACOSAMIDE 200 MG/20 ML VIAL IV SCH ×2 (10:59→21:28)
[2021-02-10] MEDS: BALSAM PERU/CASTOR OIL 60 GM TUBE TP SCH ×3 (10:59→20:35)
[2021-02-10 12:00] VITALS: BP 106/68
[2021-02-10] MEDS: FLUCONAZOLE 200 MG/NS 100 ML 100 ML IV SCH (12:21)
[2021-02-10 18:33] VITALS: BP 95/62
[2021-02-10 19:35] VITALS: BP 100/62
[2021-02-10] MEDS ORDERED: PHARMACY COMMUNICATION MISC SCH (20:00)
[2021-02-10] MEDS: ARTIFICIAL TEARS 3.5 GM OINTMENT OU SCH (20:34)
[2021-02-10] MEDS: LEVOFLOXACIN 500 MG/D5W 100 ML 100 ML IV SCH (21:14)
[2021-02-10 23:43] VITALS: BP 107/67
[2021-02-11] MEDS: IPRATROPIUM/ALBUTEROL SULFATE 3 ML SOLUTION IH SCH ×6 (02:00→23:14)
[2021-02-11] MEDS: ACETYLCYSTEINE 10% 100MG/ML 4ML VIAL IH SCH ×6 (02:00→23:15)
[2021-02-11] MEDS: CHLORHEXIDINE GLUCONATE 473 ML MOUTHWASH MM SCH ×4 (02:00→20:11)
[2021-02-11 03:10] VITALS: BP 111/67
[2021-02-11] MEDS ORDERED: METOPROLOL TARTRATE 1 MG/ML 5ML VIAL IV ONE ×3 (04:00→16:09)
[2021-02-11 04:11] LABS: CREATININE 0.9 mg/dL (0.5-1.5); POTASSIUM 3.9 mmol/L (3.5-5.1)
[2021-02-11] MEDS: LEVETIRACETAM 1,000 MG in 0.9%NACL 100ML 100 ML IV SCH ×3 (05:30→20:21)
[2021-02-11] MEDS: [UNRECOGNIZED DRUG - OTHER] IV SCH ×3 (05:32→20:21)
[2021-02-11] MEDS: FOSPHENYTOIN SODIUM IV SCH ×3 (05:32→20:21)
[2021-02-11] MEDS: INSULIN HUMULIN R 100 UNIT/ML 3ML SQ SCH ×5 (05:33→20:00)
[2021-02-11] MEDS: [UNRECOGNIZED DRUG - OTHER] IV SCH ×3 (06:13→22:49)
[2021-02-11] MEDS: VALPROIC ACID IV SCH ×3 (06:13→22:49)
[2021-02-11 08:00] VITALS: BP 120/74
[2021-02-11 08:37] LABS: INR 1.2 (0.85-1.15); PROTHROMBIN TIME 12.9 SEC (9.6-11.6)
[2021-02-11 08:39] LABS: PARTIAL THROMBOPLASTIN TIME 29.9 SEC (26.3-35.5)
[2021-02-11] MEDS: POTASSIUM CHLORIDE 10% ELIXIR 20 MEQ/15 ML UDCUP PO SCH ×2 (09:00→20:11)
[2021-02-11] MEDS: SULFAMETHOX-TMP DS 800/160 TAB NG SCH ×2 (09:00→20:08)
[2021-02-11] MEDS: BALSAM PERU/CASTOR OIL 60 GM TUBE TP SCH ×3 (10:27→20:08)
[2021-02-11] MEDS: ENOXAPARIN SODIUM 40 MG/0.4 ML SYRINGE SQ SCH (10:28)
[2021-02-11 12:00] VITALS: BP 107/69
[2021-02-11] MEDS: FLUCONAZOLE 200 MG/NS 100 ML 100 ML IV SCH (13:02)
[2021-02-11] MEDS: PANTOPRAZOLE 40 MG/VIAL IVP SCH (13:03)
[2021-02-11] MEDS: FUROSEMIDE 20MG VIAL IV SCH ×2 (13:07→20:09)
[2021-02-11] MEDS: LACOSAMIDE 200 MG/20 ML VIAL IV SCH ×2 (13:08→20:08)
[2021-02-11 16:00] VITALS: BP 114/75
[2021-02-11] MEDS ORDERED: METOPROLOL TARTRATE 1 MG/ML 5ML VIAL IV SCH ×2 (16:30)
[2021-02-11 19:30] VITALS: BP 101/59
[2021-02-11] MEDS: ARTIFICIAL TEARS 3.5 GM OINTMENT OU SCH (20:12)
[2021-02-11] MEDS: LEVOFLOXACIN 500 MG/D5W 100 ML 100 ML IV SCH (20:19)
[2021-02-11 23:30] VITALS: BP 98/64
[2021-02-12] MEDS: CHLORHEXIDINE GLUCONATE 473 ML MOUTHWASH MM SCH ×4 (02:00→20:06)
[2021-02-12] MEDS: ACETYLCYSTEINE 10% 100MG/ML 4ML VIAL IH SCH ×6 (02:03→22:53)
[2021-02-12] MEDS: IPRATROPIUM/ALBUTEROL SULFATE 3 ML SOLUTION IH SCH ×6 (02:03→22:53)
[2021-02-12 03:20] VITALS: BP 91/60
[2021-02-12 04:18] LABS: HEMATOCRIT 33.7 % (42-54); MEAN CORPUSCULAR HGB CONC 31.5 g/dL (32.0-36.0); MEAN CORPUSCULAR VOLUME 92.3 fL (79-99); PLATELET COUNT (AUTO) 287 K/uL (130-400); RED BLOOD CELL COUNT(AUTO) 3.65 MIL/uL (4.50-6.20); RED CELL DISTRIBUTION WIDTH 18.5 % (11.0-15.5); WHITE BLOOD COUNT (AUTO) 7.1 K/uL (4.8-10.8)
[2021-02-12 04:19] LABS: POTASSIUM 3.9 mmol/L (3.5-5.1)
[2021-02-12] MEDS: LEVETIRACETAM 1,000 MG in 0.9%NACL 100ML 100 ML IV SCH ×3 (05:03→22:34)
[2021-02-12] MEDS: FOSPHENYTOIN SODIUM IV SCH ×3 (05:05→22:36)
[2021-02-12] MEDS: [UNRECOGNIZED DRUG - OTHER] IV SCH ×3 (05:05→22:36)
[2021-02-12] MEDS: INSULIN HUMULIN R 100 UNIT/ML 3ML SQ SCH ×3 (05:23→20:05)
[2021-02-12] MEDS ORDERED: PHARMACY COMMUNICATION MISC SCH (06:30)
[2021-02-12 08:00] VITALS: BP 102/70
[2021-02-12] MEDS: FLUCONAZOLE 200 MG/NS 100 ML 100 ML IV SCH (09:09)
[2021-02-12] MEDS: FUROSEMIDE 20MG VIAL IV SCH ×2 (09:10→20:06)
[2021-02-12] MEDS: [UNRECOGNIZED DRUG - OTHER] IV SCH ×3 (09:11→22:35)
[2021-02-12] MEDS: VALPROIC ACID IV SCH ×3 (09:11→22:35)
[2021-02-12] MEDS: SULFAMETHOX-TMP DS 800/160 TAB NG SCH ×2 (09:12→20:07)
[2021-02-12] MEDS: PANTOPRAZOLE 40 MG/VIAL IVP SCH (09:12)
[2021-02-12] MEDS: POTASSIUM CHLORIDE 10% ELIXIR 20 MEQ/15 ML UDCUP PO SCH ×2 (09:12→20:07)
[2021-02-12] MEDS: ENOXAPARIN SODIUM 40 MG/0.4 ML SYRINGE SQ SCH (09:13)
[2021-02-12] MEDS: LACOSAMIDE 200 MG/20 ML VIAL IV SCH ×2 (09:22→20:06)
[2021-02-12] MEDS: BALSAM PERU/CASTOR OIL 60 GM TUBE TP SCH ×3 (09:23→20:08)
[2021-02-12 11:55] VITALS: BP 102/72
[2021-02-12 16:00] VITALS: BP 111/70
[2021-02-12 20:00] VITALS: BP 109/75
[2021-02-12] MEDS: ARTIFICIAL TEARS 3.5 GM OINTMENT OU SCH (20:23)
[2021-02-12] MEDS: LEVOFLOXACIN 500 MG/D5W 100 ML 100 ML IV SCH (22:36)
[2021-02-12 23:58] VITALS: BP 107/76
[2021-02-13] MEDS: CHLORHEXIDINE GLUCONATE 473 ML MOUTHWASH MM SCH ×4 (02:00→20:24)
[2021-02-13] MEDS: ACETYLCYSTEINE 10% 100MG/ML 4ML VIAL IH SCH ×6 (03:15→21:42)
[2021-02-13] MEDS: IPRATROPIUM/ALBUTEROL SULFATE 3 ML SOLUTION IH SCH ×6 (03:15→21:41)
[2021-02-13 04:00] VITALS: BP 106/75
[2021-02-13 04:51] LABS: BASOPHILS % (AUTO) 0.2 % (0.0-5.0); EOSINOPHILS % (AUTO) 1.5 % (0.0-8.0); HEMATOCRIT 33.3 % (42-54); LYMPHOCYTES % (AUTO) 14.4 % (21.0-51.0); MEAN CORPUSCULAR HEMOGLOBIN 28.9 pg (27.0-33.0); MEAN CORPUSCULAR HGB CONC 31.2 g/dL (32.0-36.0); MEAN CORPUSCULAR VOLUME 92.5 fL (79-99); MONOCYTES % (AUTO) 8.4 % (3.0-13.0); NEUTROPHILS % (AUTO) 74.4 % (40.0-77.0); PLATELET COUNT (AUTO) 279 K/uL (130-400); RED CELL DISTRIBUTION WIDTH 18.6 % (11.0-15.5); WHITE BLOOD COUNT (AUTO) 6.2 K/uL (4.8-10.8)
[2021-02-13] MEDS: LEVETIRACETAM 1,000 MG in 0.9%NACL 100ML 100 ML IV SCH ×3 (05:01→20:22)
[2021-02-13] MEDS: [UNRECOGNIZED DRUG - OTHER] IV SCH ×3 (05:02→20:22)
[2021-02-13] MEDS: [UNRECOGNIZED DRUG - OTHER] IV SCH ×3 (05:02→20:25)
[2021-02-13] MEDS: FOSPHENYTOIN SODIUM IV SCH ×3 (05:02→20:25)
[2021-02-13] MEDS: VALPROIC ACID IV SCH ×3 (05:02→20:22)
[2021-02-13 05:06] LABS: POTASSIUM 3.7 mmol/L (3.5-5.1)
[2021-02-13] MEDS: INSULIN HUMULIN R 100 UNIT/ML 3ML SQ SCH ×3 (05:36→16:43)
[2021-02-13 08:00] VITALS: BP 112/71
[2021-02-13] MEDS: PANTOPRAZOLE 40 MG/VIAL IVP SCH (08:26)
[2021-02-13] MEDS: FUROSEMIDE 20MG VIAL IV SCH ×2 (08:26→20:23)
[2021-02-13] MEDS: FLUCONAZOLE 200 MG/NS 100 ML 100 ML IV SCH (08:26)
[2021-02-13] MEDS: SULFAMETHOX-TMP DS 800/160 TAB NG SCH ×2 (08:26→20:23)
[2021-02-13] MEDS: POTASSIUM CHLORIDE 10% ELIXIR 20 MEQ/15 ML UDCUP PO SCH ×2 (08:26→20:23)
[2021-02-13] MEDS: BALSAM PERU/CASTOR OIL 60 GM TUBE TP SCH ×3 (08:27→20:24)
[2021-02-13] MEDS: ENOXAPARIN SODIUM 40 MG/0.4 ML SYRINGE SQ SCH (08:27)
[2021-02-13] MEDS: LACOSAMIDE 200 MG/20 ML VIAL IV SCH ×2 (09:51→21:53)
[2021-02-13] MEDS: POTASSIUM CHLORIDE 10% ELIXIR 20 MEQ/15 ML UDCUP PO PRN (11:51)
[2021-02-13 12:00] VITALS: BP 121/75
[2021-02-13 16:00] VITALS: BP 119/72
[2021-02-13 20:00] VITALS: BP 89/54
[2021-02-13] MEDS: LEVOFLOXACIN 500 MG/D5W 100 ML 100 ML IV SCH (20:23)
[2021-02-13] MEDS: ARTIFICIAL TEARS 3.5 GM OINTMENT OU SCH (20:26)
[2021-02-13 20:35] VITALS: BP 94/64
[2021-02-14] VITALS: BP 99/70
[2021-02-14] MEDS: IPRATROPIUM/ALBUTEROL SULFATE 3 ML SOLUTION IH SCH ×6 (01:42→21:50)
[2021-02-14] MEDS: ACETYLCYSTEINE 10% 100MG/ML 4ML VIAL IH SCH ×3 (01:43→09:46)
[2021-02-14] MEDS: LORAZEPAM 2 MG/ML 1 ML VIAL IVP PRN (02:04)
[2021-02-14] MEDS: CHLORHEXIDINE GLUCONATE 473 ML MOUTHWASH MM SCH ×4 (02:08→20:01)
[2021-02-14 04:00] VITALS: BP 90/60
[2021-02-14] MEDS: VALPROIC ACID IV SCH ×3 (05:46→22:43)
[2021-02-14] MEDS: [UNRECOGNIZED DRUG - OTHER] IV SCH ×3 (05:46→22:43)
[2021-02-14] MEDS: LEVETIRACETAM 1,000 MG in 0.9%NACL 100ML 100 ML IV SCH ×3 (05:47→21:49)
[2021-02-14] MEDS: [UNRECOGNIZED DRUG - OTHER] IV SCH ×3 (05:48→21:42)
[2021-02-14] MEDS: FOSPHENYTOIN SODIUM IV SCH ×3 (05:48→21:42)
[2021-02-14] MEDS: INSULIN HUMULIN R 100 UNIT/ML 3ML SQ SCH ×4 (06:00→16:54)
[2021-02-14 08:00] VITALS: BP 99/65
[2021-02-14] MEDS: PANTOPRAZOLE 40 MG/VIAL IVP SCH (08:49)
[2021-02-14] MEDS: SULFAMETHOX-TMP DS 800/160 TAB NG SCH (08:49)
[2021-02-14] MEDS: FUROSEMIDE 20MG VIAL IV SCH ×2 (08:49→20:01)
[2021-02-14] MEDS: POTASSIUM CHLORIDE 10% ELIXIR 20 MEQ/15 ML UDCUP PO SCH ×2 (08:49→20:03)
[2021-02-14] MEDS: FLUCONAZOLE 200 MG/NS 100 ML 100 ML IV SCH (08:50)
[2021-02-14] MEDS: BALSAM PERU/CASTOR OIL 60 GM TUBE TP SCH ×3 (08:50→20:03)
[2021-02-14] MEDS: ENOXAPARIN SODIUM 40 MG/0.4 ML SYRINGE SQ SCH (08:50)
[2021-02-14] MEDS: LACOSAMIDE 200 MG/20 ML VIAL IV SCH ×2 (10:08→20:02)
[2021-02-14 12:00] VITALS: BP 104/67
[2021-02-14 13:59] LABS: ABG BASE EXCESS 1.4 mmol/L (-2.0-3.0); ABG HCO3 23.8 mmol/L (21.0-28.0); ABG OXYGEN SATURATION 97.4 % (95.0-99.0); ABG PCO2 31 mmHg (35-48)
[2021-02-14] MEDS ORDERED: VANCOMYCIN 1G VIAL IVPB ONE (14:00)
[2021-02-14] MEDS ORDERED: ZOSYN 3.375GM+NS 50ML 3.38 GM in 0.9%NACL 50ML 50 ML IV SCH (14:00)
[2021-02-14] MEDS ORDERED: LEVOFLOXACIN 500 MG/D5W 100 ML 100 ML IV SCH (14:00)
[2021-02-14] MEDS ORDERED: VANCOMYCIN PROTOCOL PER PHARMACY IV SCH (14:00)
[2021-02-14 14:15] LABS: BASOPHILS % (AUTO) 0.6 % (0.0-5.0); LYMPHOCYTES % (AUTO) 10.8 % (21.0-51.0); MEAN CORPUSCULAR HEMOGLOBIN 28.5 pg (27.0-33.0); MEAN CORPUSCULAR HGB CONC 30.6 g/dL (32.0-36.0); MONOCYTES % (AUTO) 7.9 % (3.0-13.0); NEUTROPHILS % (AUTO) 77.8 % (40.0-77.0); PLATELET COUNT (AUTO) 282 K/uL (130-400); RED BLOOD CELL COUNT(AUTO) 3.44 MIL/uL (4.50-6.20); WHITE BLOOD COUNT (AUTO) 5.2 K/uL (4.8-10.8)
[2021-02-14 14:39] LABS: ALBUMIN 2.2 g/dL (3.5-5.0); BILIRUBIN,TOTAL 0.6 mg/dL (0.2-1.0); CREATININE 1.2 mg/dL (0.5-1.5); POTASSIUM 3.9 mmol/L (3.5-5.1); TOTAL PROTEIN, SERUM 6.2 g/dL (6.0-8.3)
[2021-02-14] MEDS: ZOSYN 3.375GM +NS 50ML IV SCH ×2 (15:11→22:42)
[2021-02-14] MEDS: DEXTROSE 5%-WATER 1,000 ML IV SCH (15:11)
[2021-02-14 15:53] LABS: APPEARANCE,URINE Clear (CLEAR); BILIRUBIN,URINE Negative (NEGATIVE); COLOR,URINE Dark Yellow (YELLOW); GLUCOSE, URINE (UA) Negative (NEGATIVE); KETONES,URINE Trace mg/dL (NEGATIVE); LEUKOCYTE ESTERASE ,URINE Negative (NEGATIVE); NITRATE,URINE Negative (NEGATIVE); OCCULT BLOOD,URINE Moderate (NEGATIVE); PH,URINE 5.5 (5.0-8.0); PROTEIN,URINE Trace mg/dL (NEGATIVE)
[2021-02-14 16:00] VITALS: BP 103/74
[2021-02-14 16:00] LABS: WBC,URINE 0-1 /HPF (0-1)
[2021-02-14 16:01] LABS: BACTERIA,URINE Rare /HPF (None Seen); SQUAMOUS EPITHELIAL CELL,UR Rare /HPF (0-2)
[2021-02-14 16:03] LABS: MUCUS,URINE Few LPF (None Seen)
[2021-02-14] MEDS ORDERED: VANCOMYCIN 1.5GM/NS 250ML IV ONE ×2 (18:00)
[2021-02-14 20:00] VITALS: BP 105/72
[2021-02-14] MEDS: ARTIFICIAL TEARS 3.5 GM OINTMENT OU SCH (20:02)
[2021-02-14] MEDS: LEVOFLOXACIN 500 MG/D5W 100 ML 100 ML IV SCH (21:49)
[2021-02-15] VITALS (18 sets, daily range): BP systolic 80–141; BP diastolic 51–83
[2021-02-15] MEDS: IPRATROPIUM/ALBUTEROL SULFATE 3 ML SOLUTION IH SCH ×6 (01:24→21:37)
[2021-02-15] MEDS: LORAZEPAM 2 MG/ML 1 ML VIAL IVP PRN (02:42)
[2021-02-15] MEDS: CHLORHEXIDINE GLUCONATE 473 ML MOUTHWASH MM SCH ×4 (02:42→20:41)
[2021-02-15 03:53] LABS: ABG BASE EXCESS 2.5 mmol/L (-2.0-3.0); ABG HCO3 24.8 mmol/L (21.0-28.0); ABG OXYGEN SATURATION 94.7 % (95.0-99.0); ABG PCO2 32 mmHg (35-48)
[2021-02-15 04:15] LABS: BASOPHILS % (AUTO) 0.4 % (0.0-5.0); EOSINOPHILS % (AUTO) 0.5 % (0.0-8.0); HEMATOCRIT 32.5 % (42-54); LYMPHOCYTES % (AUTO) 12.4 % (21.0-51.0); MEAN CORPUSCULAR HEMOGLOBIN 28.9 pg (27.0-33.0); MEAN CORPUSCULAR HGB CONC 30.5 g/dL (32.0-36.0); MEAN CORPUSCULAR VOLUME 94.8 fL (79-99); MONOCYTES % (AUTO) 9.1 % (3.0-13.0); NEUTROPHILS % (AUTO) 76.1 % (40.0-77.0); PLATELET COUNT (AUTO) 271 K/uL (130-400); RED BLOOD CELL COUNT(AUTO) 3.43 MIL/uL (4.50-6.20); RED CELL DISTRIBUTION WIDTH 19.3 % (11.0-15.5); WHITE BLOOD COUNT (AUTO) 5.5 K/uL (4.8-10.8)
[2021-02-15 04:28] LABS: CREATININE 1.3 mg/dL (0.5-1.5)
[2021-02-15] MEDS: FOSPHENYTOIN SODIUM IV SCH ×3 (05:03→22:20)
[2021-02-15] MEDS: [UNRECOGNIZED DRUG - OTHER] IV SCH ×3 (05:03→22:20)
[2021-02-15] MEDS: DEXTROSE 5%-WATER 1,000 ML IV SCH ×2 (05:03→17:32)
[2021-02-15] MEDS: VANCOMYCIN 750MG VIAL IVPB SCH ×2 (05:16→17:32)
[2021-02-15] MEDS: LEVETIRACETAM 1,000 MG in 0.9%NACL 100ML 100 ML IV SCH ×3 (05:16→22:20)
[2021-02-15] MEDS: 0.9% NACL 250ML 250 ML IV SCH ×2 (05:17→17:32)
[2021-02-15] MEDS: ZOSYN 3.375GM +NS 50ML IV SCH ×3 (05:21→22:00)
[2021-02-15] MEDS: INSULIN HUMULIN R 100 UNIT/ML 3ML SQ SCH ×4 (05:31→17:33)
[2021-02-15] MEDS: [UNRECOGNIZED DRUG - OTHER] IV SCH ×3 (07:11→22:20)
[2021-02-15] MEDS: VALPROIC ACID IV SCH ×3 (07:11→22:20)
[2021-02-15] MEDS: POTASSIUM CHLORIDE 10% ELIXIR 20 MEQ/15 ML UDCUP PO SCH ×2 (09:00→20:42)
[2021-02-15] MEDS: FUROSEMIDE 20MG VIAL IV SCH (09:52)
[2021-02-15] MEDS: PANTOPRAZOLE 40 MG/VIAL IVP SCH (09:52)
[2021-02-15] MEDS: FLUCONAZOLE 200 MG/NS 100 ML 100 ML IV SCH (09:52)
[2021-02-15] MEDS: BALSAM PERU/CASTOR OIL 60 GM TUBE TP SCH ×3 (09:53→20:42)
[2021-02-15] MEDS: ENOXAPARIN SODIUM 40 MG/0.4 ML SYRINGE SQ SCH (09:53)
[2021-02-15] MEDS: LACOSAMIDE 200 MG/20 ML VIAL IV SCH ×2 (11:48→20:41)
[2021-02-15] MEDS ORDERED: HYDROCORTISONE SOD SUCCINATE 100 MG/2 ML VIAL IV SCH (13:30)
[2021-02-15] MEDS: MIDODRINE HCL 5 MG TABLET PO SCH ×3 (13:31→20:42)
[2021-02-15] MEDS: DEXTROSE 5%-LACTATED RINGERS 1,000 ML IV SCH (17:30)
[2021-02-15] MEDS: HYDROCORTISONE SOD SUCCINATE 100 MG/2 ML VIAL IV SCH (20:41)
[2021-02-15] MEDS: ARTIFICIAL TEARS 3.5 GM OINTMENT OU SCH (20:42)
[2021-02-15] MEDS: LEVOFLOXACIN 500 MG/D5W 100 ML 100 ML IV SCH (22:00)
[2021-02-16] VITALS (23 sets, daily range): BP systolic 89–130; BP diastolic 56–92
[2021-02-16] MEDS: CHLORHEXIDINE GLUCONATE 473 ML MOUTHWASH MM SCH ×4 (02:04→20:00)
[2021-02-16] MEDS: IPRATROPIUM/ALBUTEROL SULFATE 3 ML SOLUTION IH SCH ×3 (02:35→09:23)
[2021-02-16] MEDS: DEXTROSE 5%-LACTATED RINGERS 1,000 ML IV SCH ×3 (03:36→23:30)
[2021-02-16] MEDS: FOSPHENYTOIN SODIUM IV SCH ×3 (04:43→22:15)
[2021-02-16] MEDS: [UNRECOGNIZED DRUG - OTHER] IV SCH ×3 (04:43→22:15)
[2021-02-16] MEDS: HYDROCORTISONE SOD SUCCINATE 100 MG/2 ML VIAL IV SCH ×3 (04:43→20:00)
[2021-02-16 05:10] LABS: HEMATOCRIT 32.3 % (42-54); MEAN CORPUSCULAR HEMOGLOBIN 28.9 pg (27.0-33.0); MEAN CORPUSCULAR HGB CONC 30.7 g/dL (32.0-36.0); MEAN CORPUSCULAR VOLUME 94.4 fL (79-99); RED BLOOD CELL COUNT(AUTO) 3.42 MIL/uL (4.50-6.20); RED CELL DISTRIBUTION WIDTH 19.9 % (11.0-15.5); WHITE BLOOD COUNT (AUTO) 6.8 K/uL (4.8-10.8)
[2021-02-16] MEDS: LEVETIRACETAM 1,000 MG in 0.9%NACL 100ML 100 ML IV SCH ×3 (05:30→22:15)
[2021-02-16 05:39] LABS: CREATININE 1.8 mg/dL (0.5-1.5); POTASSIUM 4.7 mmol/L (3.5-5.1)
[2021-02-16] MEDS: ZOSYN 3.375GM +NS 50ML IV SCH (05:41)
[2021-02-16] MEDS: 0.9% NACL 250ML 250 ML IV SCH (06:38)
[2021-02-16] MEDS: VANCOMYCIN 750MG VIAL IVPB SCH (06:38)
[2021-02-16] MEDS: INSULIN HUMULIN R 100 UNIT/ML 3ML SQ SCH ×4 (06:41→18:00)
[2021-02-16] MEDS: DEXTROSE 5%-WATER 1,000 ML IV SCH ×2 (06:41→19:50)
[2021-02-16] MEDS: [UNRECOGNIZED DRUG - OTHER] IV SCH ×3 (08:05→23:30)
[2021-02-16] MEDS: VALPROIC ACID IV SCH ×3 (08:05→23:30)
[2021-02-16] MEDS: FLUCONAZOLE 200 MG/NS 100 ML 100 ML IV SCH (09:03)
[2021-02-16] MEDS: MIDODRINE HCL 5 MG TABLET PO SCH ×3 (09:04→22:14)
[2021-02-16] MEDS: PANTOPRAZOLE 40 MG/VIAL IVP SCH (09:04)
[2021-02-16] MEDS: ENOXAPARIN SODIUM 40 MG/0.4 ML SYRINGE SQ SCH (09:07)
[2021-02-16] MEDS: POTASSIUM CHLORIDE 10% ELIXIR 20 MEQ/15 ML UDCUP PO SCH ×2 (09:08→21:00)
[2021-02-16] MEDS: BALSAM PERU/CASTOR OIL 60 GM TUBE TP SCH ×3 (09:18→22:14)
[2021-02-16] MEDS ORDERED: RENAL DOSE IV PRN (10:00)
[2021-02-16] MEDS ORDERED: FUROSEMIDE 40MG VIAL IV ONE (11:00)
[2021-02-16] MEDS: LACOSAMIDE 200 MG/20 ML VIAL IV SCH ×2 (11:03→22:13)
[2021-02-16 14:33] LABS: ALBUMIN 2.2 g/dL (3.5-5.0); PHENYTOIN (DILANTIN) 6.5 mcg/mL (10.0-20.0)
[2021-02-16] MEDS: CEFEPIME HCL 1 GM VIAL IVP SCH (15:49)
[2021-02-16] MEDS: IPRATROPIUM 0.5 MG/2.5 ML INH IH SCH ×2 (18:00→23:37)
[2021-02-16] MEDS: VANCOMYCIN 500MG+NS 100ML IVPB IV SCH (18:00)
[2021-02-16] MEDS: 0.9%NACL 100ML 100 ML IV SCH (18:00)
[2021-02-16] MEDS ORDERED: DEXMEDETOMIDINE 400MCG/NS100ML IV ONE (21:54)
[2021-02-16] MEDS: ARTIFICIAL TEARS 3.5 GM OINTMENT OU SCH (22:13)
[2021-02-17] VITALS (32 sets, daily range): BP systolic 73–112; BP diastolic 20–79
[2021-02-17] MEDS: CHLORHEXIDINE GLUCONATE 473 ML MOUTHWASH MM SCH ×4 (03:40→19:56)
[2021-02-17] MEDS: HYDROCORTISONE SOD SUCCINATE 100 MG/2 ML VIAL IV SCH (03:41)
[2021-02-17 03:44] LABS: HEMATOCRIT 30.6 % (42-54); MEAN CORPUSCULAR HGB CONC 30.1 g/dL (32.0-36.0); MEAN CORPUSCULAR VOLUME 96.5 fL (79-99); NUCLEATED RED BLOOD CELLS 0.3 % (0.0-0.19); RED BLOOD CELL COUNT(AUTO) 3.17 MIL/uL (4.50-6.20); RED CELL DISTRIBUTION WIDTH 19.9 % (11.0-15.5); WHITE BLOOD COUNT (AUTO) 6.3 K/uL (4.8-10.8)
[2021-02-17 03:53] LABS: CREATININE 2.3 mg/dL (0.5-1.5); POTASSIUM 5.8 mmol/L (3.5-5.1)
[2021-02-17] MEDS: [UNRECOGNIZED DRUG - OTHER] IV SCH ×3 (05:39→20:20)
[2021-02-17] MEDS: FOSPHENYTOIN SODIUM IV SCH ×3 (05:39→20:20)
[2021-02-17] MEDS: VANCOMYCIN 500MG+NS 100ML IVPB IV SCH ×2 (05:39→19:29)
[2021-02-17] MEDS: 0.9%NACL 100ML 100 ML IV SCH ×3 (05:40→19:29)
[2021-02-17] MEDS: INSULIN HUMULIN R 100 UNIT/ML 3ML SQ SCH ×5 (05:53→23:50)
[2021-02-17] MEDS: LEVETIRACETAM 1,000 MG in 0.9%NACL 100ML 100 ML IV SCH ×3 (05:53→20:21)
[2021-02-17] MEDS: IPRATROPIUM 0.5 MG/2.5 ML INH IH SCH ×4 (07:12→20:23)
[2021-02-17] MEDS ORDERED: CALCIUM GLUC 1GM VIAL 1 GM in 0.9%NACL 100ML 100 ML IV SCH (07:30)
[2021-02-17] MEDS ORDERED: CALCIUM GLUC 1GM VIAL IV SCH (07:30)
[2021-02-17] MEDS ORDERED: CEFAZOLIN SODIUM 1 GM VIAL ONE (08:21)
[2021-02-17] MEDS: SODIUM BICARB 50MEQ 50ML VIAL IV SCH (08:31)
[2021-02-17] MEDS: VALPROIC ACID IV SCH ×3 (08:43→21:53)
[2021-02-17] MEDS: KAYEXALATE 15GM/60ML NG SCH (08:43)
[2021-02-17] MEDS: [UNRECOGNIZED DRUG - OTHER] IV SCH ×3 (08:43→21:53)
[2021-02-17] MEDS: ENOXAPARIN SODIUM 40 MG/0.4 ML SYRINGE SQ SCH (08:47)
[2021-02-17] MEDS: FLUCONAZOLE 200 MG/NS 100 ML 100 ML IV SCH (08:49)
[2021-02-17] MEDS: MIDODRINE HCL 5 MG TABLET PO SCH (08:50)
[2021-02-17] MEDS: PANTOPRAZOLE 40 MG/VIAL IVP SCH (08:50)
[2021-02-17] MEDS: BALSAM PERU/CASTOR OIL 60 GM TUBE TP SCH ×3 (08:51→19:56)
[2021-02-17] MEDS ORDERED: FUROSEMIDE 40MG VIAL IV SCH (09:00)
[2021-02-17] MEDS: LACOSAMIDE 200 MG/20 ML VIAL IV SCH ×2 (10:45→20:20)
[2021-02-17] MEDS: ACETYLCYSTEINE 10% 100MG/ML 4ML VIAL IH SCH ×3 (11:47→20:32)
[2021-02-17] MEDS ORDERED: Vitamin B Complex/Vit C/Folic Acid PO ONE (15:00)
[2021-02-17] MEDS: CEFEPIME HCL 1 GM VIAL IVP SCH (17:13)
[2021-02-17 17:29] LABS: % IRON SATURATION 50.5 % (30-44)
[2021-02-17] MEDS: ARTIFICIAL TEARS 3.5 GM OINTMENT OU SCH (19:56)
[2021-02-17] MEDS: SODIUM BICARBONATE 650 MG TAB PO SCH (19:56)
[2021-02-17] MEDS: DEXTROSE 5%-WATER 1,000 ML IV SCH ×2 (21:00→22:25)
[2021-02-17] MEDS: LEVOFLOXACIN 250 MG/D5W 50ML 50 ML IVPB SCH (22:00)
[2021-02-17] MEDS: 0.9%NACL 1000ML 1,000 ML IV SCH (22:00)
[2021-02-18] VITALS (21 sets, daily range): BP systolic 88–136; BP diastolic 60–95
[2021-02-18] MEDS: IPRATROPIUM 0.5 MG/2.5 ML INH IH SCH ×4 (00:29→19:22)
[2021-02-18] MEDS: ACETYLCYSTEINE 10% 100MG/ML 4ML VIAL IH SCH ×4 (00:30→19:22)
[2021-02-18] MEDS: 0.9%NACL 1000ML 1,000 ML IV SCH (00:39)
[2021-02-18 01:10] LABS: HEMATOCRIT 35.9 % (42-54); MEAN CORPUSCULAR HEMOGLOBIN 28.8 pg (27.0-33.0); MEAN CORPUSCULAR HGB CONC 30.9 g/dL (32.0-36.0); MEAN CORPUSCULAR VOLUME 93.2 fL (79-99); NUCLEATED RED BLOOD CELLS 1.5 % (0.0-0.19); PLATELET COUNT (AUTO) 436 K/uL (130-400); RED BLOOD CELL COUNT(AUTO) 3.85 MIL/uL (4.50-6.20); RED CELL DISTRIBUTION WIDTH 20.5 % (11.0-15.5); WHITE BLOOD COUNT (AUTO) 15.4 K/uL (4.8-10.8)
[2021-02-18 01:15] LABS: ABG BASE EXCESS -6.1 mmol/L (-2.0-3.0); ABG HCO3 16.8 mmol/L (21.0-28.0); ABG OXYGEN SATURATION 96.5 % (95.0-99.0); ABG PCO2 27 mmHg (35-48)
[2021-02-18 01:32] LABS: BAND NEUTROPHILS % (MANUAL) 1 % (0-2); LYMPHOCYTES % (MANUAL) 12 % (22-44); MAN.DIFF COMMENT-IMPRESSION MANUAL DIFFERENTIAL; METAMYELOCYTES % 1 % (0-0); MONOCYTES % (MANUAL) 6 % (2-9); SEGMENTED NEUTROPHILS % 80 % (40-70)
[2021-02-18 01:35] LABS: ALBUMIN 2.1 g/dL (3.5-5.0); BILIRUBIN,TOTAL 1.1 mg/dL (0.2-1.0); CREATININE 2.2 mg/dL (0.5-1.5); POTASSIUM 4.6 mmol/L (3.5-5.1); TOTAL PROTEIN, SERUM 6.2 g/dL (6.0-8.3)
[2021-02-18] MEDS: CHLORHEXIDINE GLUCONATE 473 ML MOUTHWASH MM SCH ×4 (01:50→21:07)
[2021-02-18] MEDS ORDERED: SODIUM BICARB 50MEQ 50ML VIAL IVPB STA (01:51)
[2021-02-18] MEDS ORDERED: FUROSEMIDE 40MG VIAL IV ONE (02:00)
[2021-02-18] MEDS: VANCOMYCIN 500MG+NS 100ML IVPB IV SCH ×2 (05:42→21:07)
[2021-02-18] MEDS: LEVETIRACETAM 1,000 MG in 0.9%NACL 100ML 100 ML IV SCH ×3 (05:42→21:06)
[2021-02-18] MEDS: FOSPHENYTOIN SODIUM IV SCH ×3 (05:42→21:08)
[2021-02-18] MEDS: [UNRECOGNIZED DRUG - OTHER] IV SCH ×3 (05:42→21:08)
[2021-02-18] MEDS: INSULIN HUMULIN R 100 UNIT/ML 3ML SQ SCH ×3 (05:42→18:00)
[2021-02-18] MEDS: DEXMEDETOMIDINE 400MCG/NS100ML IV SCH (07:05)
[2021-02-18] MEDS: SODIUM BICARB 50MEQ 50ML VIAL IV SCH (07:50)
[2021-02-18] MEDS: PANTOPRAZOLE 40 MG/VIAL IVP SCH (07:50)
[2021-02-18] MEDS: [UNRECOGNIZED DRUG - OTHER] IV SCH ×2 (07:50→15:30)
[2021-02-18] MEDS: LACOSAMIDE 200 MG/20 ML VIAL IV SCH ×2 (07:50→21:07)
[2021-02-18] MEDS: KAYEXALATE 15GM/60ML NG SCH (07:50)
[2021-02-18] MEDS: SODIUM BICARBONATE 650 MG TAB PO SCH ×2 (07:50→21:08)
[2021-02-18] MEDS: VALPROIC ACID IV SCH ×2 (07:50→15:30)
[2021-02-18] MEDS: ENOXAPARIN SODIUM 40 MG/0.4 ML SYRINGE SQ SCH (07:51)
[2021-02-18] MEDS: FLUCONAZOLE 200 MG/NS 100 ML 100 ML IV SCH (07:52)
[2021-02-18] MEDS: Vitamin B Complex/Vit C/Folic Acid PO SCH (07:52)
[2021-02-18] MEDS: BALSAM PERU/CASTOR OIL 60 GM TUBE TP SCH ×3 (07:53→21:00)
[2021-02-18] MEDS: DEXTROSE 5%-WATER 1,000 ML IV SCH (11:50)
[2021-02-18] MEDS: CEFEPIME HCL 1 GM VIAL IVP SCH ×2 (14:38→22:30)
[2021-02-18] MEDS: 0.9%NACL 100ML 100 ML IV SCH ×2 (18:00→21:07)
[2021-02-18] MEDS: ARTIFICIAL TEARS 3.5 GM OINTMENT OU SCH (21:00)
[2021-02-18] MEDS: LEVOFLOXACIN 250 MG/D5W 50ML 50 ML IVPB SCH (21:08)
[2021-02-19] VITALS (32 sets, daily range): BP systolic 96–165; BP diastolic 42–91
[2021-02-19] MEDS: ACETYLCYSTEINE 10% 100MG/ML 4ML VIAL IH SCH ×5 (00:13→23:06)
[2021-02-19] MEDS: IPRATROPIUM 0.5 MG/2.5 ML INH IH SCH ×5 (00:14→23:05)
[2021-02-19] MEDS: [UNRECOGNIZED DRUG - OTHER] IV SCH ×4 (00:33→23:02)
[2021-02-19] MEDS: VALPROIC ACID IV SCH ×4 (00:33→23:02)
[2021-02-19] MEDS: DEXTROSE 5%-WATER 1,000 ML IV SCH ×2 (01:10→14:33)
[2021-02-19] MEDS: CHLORHEXIDINE GLUCONATE 473 ML MOUTHWASH MM SCH ×4 (03:35→21:23)
[2021-02-19] MEDS: FOSPHENYTOIN SODIUM IV SCH ×3 (05:25→21:23)
[2021-02-19] MEDS: LEVETIRACETAM 1,000 MG in 0.9%NACL 100ML 100 ML IV SCH ×3 (05:25→21:23)
[2021-02-19] MEDS: [UNRECOGNIZED DRUG - OTHER] IV SCH ×3 (05:25→21:23)
[2021-02-19 05:47] LABS: MEAN CORPUSCULAR HEMOGLOBIN 28.7 pg (27.0-33.0); MEAN CORPUSCULAR HGB CONC 30.3 g/dL (32.0-36.0); MEAN CORPUSCULAR VOLUME 94.9 fL (79-99); NUCLEATED RED BLOOD CELLS 0.6 % (0.0-0.19); RED BLOOD CELL COUNT(AUTO) 3.69 MIL/uL (4.50-6.20); RED CELL DISTRIBUTION WIDTH 20.9 % (11.0-15.5); WHITE BLOOD COUNT (AUTO) 8.1 K/uL (4.8-10.8)
[2021-02-19] MEDS: INSULIN HUMULIN R 100 UNIT/ML 3ML SQ SCH ×4 (05:53→17:37)
[2021-02-19] MEDS: SODIUM BICARB 50MEQ 50ML VIAL IV SCH (05:56)
[2021-02-19] MEDS: CEFEPIME HCL 1 GM VIAL IVP SCH ×3 (05:57→23:02)
[2021-02-19 06:01] LABS: CREATININE 1.4 mg/dL (0.5-1.5); POTASSIUM 3.4 mmol/L (3.5-5.1)
[2021-02-19] MEDS: DEXMEDETOMIDINE 400MCG/NS100ML IV SCH (06:50)
[2021-02-19] MEDS: PANTOPRAZOLE 40 MG/VIAL IVP SCH (08:20)
[2021-02-19] MEDS: ENOXAPARIN SODIUM 40 MG/0.4 ML SYRINGE SQ SCH (08:21)
[2021-02-19] MEDS: Vitamin B Complex/Vit C/Folic Acid PO SCH (08:21)
[2021-02-19] MEDS: FLUCONAZOLE 200 MG/NS 100 ML 100 ML IV SCH (08:21)
[2021-02-19] MEDS: SODIUM BICARBONATE 650 MG TAB PO SCH ×2 (08:21→21:22)
[2021-02-19] MEDS: VANCOMYCIN 500MG+NS 100ML IVPB IV SCH ×2 (08:25→21:21)
[2021-02-19] MEDS: BALSAM PERU/CASTOR OIL 60 GM TUBE TP SCH ×3 (08:37→21:23)
[2021-02-19] MEDS: LACOSAMIDE 200 MG/20 ML VIAL IV SCH ×2 (08:56→21:22)
[2021-02-19] MEDS: 0.9%NACL 100ML 100 ML IV SCH ×3 (18:05→21:21)
[2021-02-19] MEDS: ARTIFICIAL TEARS 3.5 GM OINTMENT OU SCH (21:23)
[2021-02-19] MEDS: LEVOFLOXACIN 250 MG/D5W 50ML 50 ML IVPB SCH (23:01)
[2021-02-20] VITALS (13 sets, daily range): BP systolic 83–145; BP diastolic 49–93
[2021-02-20] MEDS: CHLORHEXIDINE GLUCONATE 473 ML MOUTHWASH MM SCH ×4 (02:00→20:47)
[2021-02-20] MEDS: DEXTROSE 5%-WATER 1,000 ML IV SCH ×3 (05:08→23:24)
[2021-02-20] MEDS: SODIUM BICARB 50MEQ 50ML VIAL IV SCH (05:31)
[2021-02-20] MEDS: INSULIN HUMULIN R 100 UNIT/ML 3ML SQ SCH ×5 (06:00→23:12)
[2021-02-20] MEDS: [UNRECOGNIZED DRUG - OTHER] IV SCH ×3 (06:18→21:07)
[2021-02-20] MEDS: FOSPHENYTOIN SODIUM IV SCH ×3 (06:18→21:07)
[2021-02-20] MEDS: LEVETIRACETAM 1,000 MG in 0.9%NACL 100ML 100 ML IV SCH ×3 (06:19→21:11)
[2021-02-20] MEDS: VALPROIC ACID IV SCH ×3 (06:19→22:33)
[2021-02-20] MEDS: [UNRECOGNIZED DRUG - OTHER] IV SCH ×3 (06:19→22:33)
[2021-02-20] MEDS: CEFEPIME HCL 1 GM VIAL IVP SCH ×3 (06:19→22:31)
[2021-02-20] MEDS: ACETYLCYSTEINE 10% 100MG/ML 4ML VIAL IH SCH ×3 (06:30→19:39)
[2021-02-20] MEDS: IPRATROPIUM 0.5 MG/2.5 ML INH IH SCH ×3 (06:30→19:39)
[2021-02-20] MEDS: BALSAM PERU/CASTOR OIL 60 GM TUBE TP SCH ×3 (08:42→21:06)
[2021-02-20] MEDS: LACOSAMIDE 200 MG/20 ML VIAL IV SCH ×2 (08:43→21:05)
[2021-02-20] MEDS: SODIUM BICARBONATE 650 MG TAB PO SCH ×2 (08:43→21:05)
[2021-02-20] MEDS: Vitamin B Complex/Vit C/Folic Acid PO SCH (08:43)
[2021-02-20] MEDS: ENOXAPARIN SODIUM 40 MG/0.4 ML SYRINGE SQ SCH (08:43)
[2021-02-20] MEDS: VANCOMYCIN 500MG+NS 100ML IVPB IV SCH ×2 (08:43→21:03)
[2021-02-20] MEDS: FLUCONAZOLE 200 MG/NS 100 ML 100 ML IV SCH (08:43)
[2021-02-20] MEDS: PANTOPRAZOLE 40 MG/VIAL IVP SCH (08:43)
[2021-02-20] MEDS: 0.9%NACL 100ML 100 ML IV SCH (17:53)
[2021-02-20] MEDS: ARTIFICIAL TEARS 3.5 GM OINTMENT OU SCH (21:06)
[2021-02-20] MEDS: LEVOFLOXACIN 250 MG/D5W 50ML 50 ML IVPB SCH (21:12)
[2021-02-20] MEDS ORDERED: DOXYCYCLINE HYCLATE 100 MG TABLET PO ONE (21:28)
[2021-02-21] VITALS (14 sets, daily range): BP systolic 75–139; BP diastolic 24–74
[2021-02-21] MEDS: IPRATROPIUM 0.5 MG/2.5 ML INH IH SCH ×2 (00:49→06:43)
[2021-02-21] MEDS: ACETYLCYSTEINE 10% 100MG/ML 4ML VIAL IH SCH ×2 (00:49→06:43)
[2021-02-21 03:51] LABS: HEMATOCRIT 37.9 % (42-54); MEAN CORPUSCULAR HEMOGLOBIN 29.9 pg (27.0-33.0); MEAN CORPUSCULAR HGB CONC 30.1 g/dL (32.0-36.0); MEAN CORPUSCULAR VOLUME 99.5 fL (79-99); NUCLEATED RED BLOOD CELLS 0.5 % (0.0-0.19); RED BLOOD CELL COUNT(AUTO) 3.81 MIL/uL (4.50-6.20); RED CELL DISTRIBUTION WIDTH 22.7 % (11.0-15.5); WHITE BLOOD COUNT (AUTO) 12.5 K/uL (4.8-10.8)
[2021-02-21 04:02] LABS: CREATININE 1.6 mg/dL (0.5-1.5); POTASSIUM 4.3 mmol/L (3.5-5.1)
[2021-02-21] MEDS: INSULIN HUMULIN R 100 UNIT/ML 3ML SQ SCH (06:00)
[2021-02-21] MEDS: LEVETIRACETAM 1,000 MG in 0.9%NACL 100ML 100 ML IV SCH (06:13)
[2021-02-21] MEDS: CEFEPIME HCL 1 GM VIAL IVP SCH (06:16)
[2021-02-21] MEDS: CHLORHEXIDINE GLUCONATE 473 ML MOUTHWASH MM SCH ×2 (06:18→08:38)
[2021-02-21] MEDS: [UNRECOGNIZED DRUG - OTHER] IV SCH (06:18)
[2021-02-21] MEDS: FOSPHENYTOIN SODIUM IV SCH (06:18)
[2021-02-21] MEDS: SODIUM BICARBONATE 650 MG TAB PO SCH (08:27)
[2021-02-21] MEDS: Vitamin B Complex/Vit C/Folic Acid PO SCH (08:27)
[2021-02-21] MEDS: PANTOPRAZOLE 40 MG/VIAL IVP SCH (08:27)
[2021-02-21] MEDS: LACOSAMIDE 200 MG/20 ML VIAL IV SCH (08:28)
[2021-02-21] MEDS: [UNRECOGNIZED DRUG - OTHER] IV SCH (08:28)
[2021-02-21] MEDS: FLUCONAZOLE 200 MG/NS 100 ML 100 ML IV SCH (08:28)
[2021-02-21] MEDS: VALPROIC ACID IV SCH (08:28)
[2021-02-21] MEDS: ENOXAPARIN SODIUM 40 MG/0.4 ML SYRINGE SQ SCH (08:29)
[2021-02-21] MEDS: 0.9%NACL 100ML 100 ML IV SCH (08:36)
[2021-02-21] MEDS: VANCOMYCIN 500MG+NS 100ML IVPB IV SCH (08:36)
[2021-02-21] MEDS: BALSAM PERU/CASTOR OIL 60 GM TUBE TP SCH (08:37)
[2021-02-21] MEDS: LORAZEPAM 2 MG/ML 1 ML VIAL IVP PRN (16:32)
[2021-02-22] VITALS: BP 92/63
[2021-02-22] MEDS: HYDROMORPHONE 1 MG INJ IVP PRN ×3 (03:42→18:56)
[2021-02-22 04:00] VITALS: BP 97/71
[2021-02-22 08:32] VITALS: BP 90/59
[2021-02-22 11:06] VITALS: BP 112/62
[2021-02-22 16:00] VITALS: BP 128/77
[2021-02-22 20:00] VITALS: BP 122/70
[2021-02-22] MEDS: LORAZEPAM 2 MG/ML 1 ML VIAL IVP PRN (23:23)
[2021-02-23] VITALS: BP 123/61
[2021-02-23 04:00] VITALS: BP 137/68
[2021-02-23] MEDS: HYDROMORPHONE 1 MG INJ IVP PRN (06:03)
[2021-02-23 07:30] VITALS: BP 106/74
[2021-02-23 11:00] VITALS: BP 119/69
[2021-02-23 16:00] VITALS: BP 115/76
[2021-02-23 20:00] VITALS: BP 152/84
[2021-02-24] VITALS: BP 123/79
[2021-02-24 04:00] VITALS: BP 111/71
[2021-02-24 07:30] VITALS: BP 104/74
[2021-02-24 11:00] VITALS: BP 106/73
== END 2021-02-24 12:30 | disposition hospice, home (50) | DRG 207 ==
LOC: EDH 12:28 → EDHIP 16:40 → 2CH 01-27 19:30 → 4CH 02-09 13:08 → 2DH 02-15 11:20 → 3CH 02-22 11:43
PROVIDERS: ADMIT Internal Medicine; ATTEND Internal Medicine
PROC: 5A1955Z Respiratory Ventilation, Greater than 96 Consecutive Hours (ICD-10-PCS; 2021-01-26)
PROC: 0BH17EZ Insertion of Endotracheal Airway into Trachea, Via Natural or Artificial Opening (ICD-10-PCS; 2021-01-26)
PROC: 4B02XSZ Measurement of Cardiac Pacemaker, External Approach (ICD-10-PCS; 2021-01-29)
PROC: 5A09357 Assistance with Respiratory Ventilation, Less than 24 Consecutive Hours, Continuous Positive Airway Pressure (ICD-10-PCS; 2021-02-01)
PROC: 5A09357 Assistance with Respiratory Ventilation, Less than 24 Consecutive Hours, Continuous Positive Airway Pressure (ICD-10-PCS; 2021-02-02)
PROC: 5A09357 Assistance with Respiratory Ventilation, Less than 24 Consecutive Hours, Continuous Positive Airway Pressure (ICD-10-PCS; 2021-02-03)
PROC: 5A09357 Assistance with Respiratory Ventilation, Less than 24 Consecutive Hours, Continuous Positive Airway Pressure (ICD-10-PCS; 2021-02-07)
PROC: 5A09357 Assistance with Respiratory Ventilation, Less than 24 Consecutive Hours, Continuous Positive Airway Pressure (ICD-10-PCS; 2021-02-09)
PROC: 5A0935A Assistance with Respiratory Ventilation, Less than 24 Consecutive Hours, High Flow/Velocity Cannula (ICD-10-PCS; 2021-02-09)
PROC: 5A09357 Assistance with Respiratory Ventilation, Less than 24 Consecutive Hours, Continuous Positive Airway Pressure (ICD-10-PCS; 2021-02-10)
PROC: 05H933Z Insertion of Infusion Device into Right Brachial Vein, Percutaneous Approach (ICD-10-PCS; principal; 2021-02-11)
PROC: 05HB33Z Insertion of Infusion Device into Right Basilic Vein, Percutaneous Approach (ICD-10-PCS; 2021-02-11)
PROC: 05H933Z Insertion of Infusion Device into Right Brachial Vein, Percutaneous Approach (ICD-10-PCS; 2021-02-11)
PROC: 5A09457 Assistance with Respiratory Ventilation, 24-96 Consecutive Hours, Continuous Positive Airway Pressure (ICD-10-PCS; 2021-02-14)
PROC: 5A09357 Assistance with Respiratory Ventilation, Less than 24 Consecutive Hours, Continuous Positive Airway Pressure (ICD-10-PCS; 2021-02-19)
PROC: 5A09357 Assistance with Respiratory Ventilation, Less than 24 Consecutive Hours, Continuous Positive Airway Pressure (ICD-10-PCS; 2021-02-20)
DX: J15.6 Pneumonia due to other Gram-negative bacteria (principal); A41.9 Sepsis, unspecified organism; R65.21 Severe sepsis with septic shock; I50.23 Acute on chronic systolic (congestive) heart failure; G93.41 Metabolic encephalopathy; E44.0 Moderate protein-calorie malnutrition; E87.0 Hyperosmolality and hypernatremia; E27.40 Unspecified adrenocortical insufficiency; E87.2 Acidosis; I13.0 Hypertensive heart and chronic kidney disease with heart failure and stage 1 through stage 4 chronic kidney disease, or unspecified chronic kidney disease; I42.9 Cardiomyopathy, unspecified; N17.9 Acute kidney failure, unspecified; J69.0 Pneumonitis due to inhalation of food and vomit; Z20.822 Contact with and (suspected) exposure to COVID-19; Z51.5 Encounter for palliative care; Z66 Do not resuscitate; G40.901 Epilepsy, unspecified, not intractable, with status epilepticus; E11.649 Type 2 diabetes mellitus with hypoglycemia without coma; E78.5 Hyperlipidemia, unspecified; I49.1 Atrial premature depolarization; K74.60 Unspecified cirrhosis of liver; E87.5 Hyperkalemia; D64.9 Anemia, unspecified; E11.22 Type 2 diabetes mellitus with diabetic chronic kidney disease; E66.9 Obesity, unspecified; E83.42 Hypomagnesemia; I25.10 Atherosclerotic heart disease of native coronary artery without angina pectoris; K21.9 Gastro-esophageal reflux disease without esophagitis; L89.322 Pressure ulcer of left buttock, stage 2; L89.312 Pressure ulcer of right buttock, stage 2; N18.9 Chronic kidney disease, unspecified; R09.02 Hypoxemia; Z68.32 Body mass index [BMI] 32.0-32.9, adult; Z79.4 Long term (current) use of insulin; Z95.0 Presence of cardiac pacemaker
CPT/HCPCS: 31500; 36415; 36600; 70450; 71045; 71250; 71275; 76700; 76770; 80048; 80053; 80164; 80185; 80202; 80305; 81001; 81003; 82040; 82140; 82435; 82533; 82550; 82728; 82803; 82945; 82947; 82948; 83036; 83540; 83550; 83605; 83615; 83735; 83874; 83880; 84100; 84132; 84145; 84157; 84295; 84443; 84484; 84681; 85018; 85025; 85027; 85378; 85610; 85730; 86592; 86654; 86694; 86710; 86735; 86765; 86787; 86788; 87040; 87071; 87077; 87088; 87147; 87186; 87205; 87252; 87483; 87635; 87798; 87804; 89051; 92526; 92610; 93005; 93970; 94002; 94003; 94640; 94660; 94664; 94667; 94668; 95816; 96374; 97039; 99291; C1751; C1894; C9113; G0378; J0133; J0290; J0330; J0610; J0690; J0692; J0696; J1170; J1450; J1650; J1720; J1815; J1940; J1953; J1956; J2060; J2260; J2543; J2704; J2765; J2930; J3370; J3480; J3490; J7030; J7050; J7070; J7608; P9047; Q2009; Q9967